=== PATIENT | female | born 1930 | race Caucasian/White ===

== ENCOUNTER 2018-09-13 17:49 | Inpatient (IN) | payer MEDICARE, BC ==
[2014-06-22 15:00] VITALS: Ht 177.8 cm; Wt 58.1 kg
[~2018-09-13] VITALS: Ht 177.8 cm; Wt 58.1 kg
[~2018-09-13 17:49] MED LIST changes: -CITA-145 PO; -CRAN1CAP9 PO; -GABA250S3 PO; -METH1TAB58 PO; -POLY10DR6 OU; -VIT1CAPS9 PO
--- NOTE | 2018-09-13 18:06 | ER Report ---
History and Physical Time Seen By MD: 18:06 Hx. of Stated Complaint: PATIENT REPORTS WEAKNESS THAT STARTED THIS MORNING. WAS DOING SOME EXERCISES AND WAS UNABLE TO GET OFF THE GROUND. A NEIGHBOR NOTICED AND HELPED HER UP. SHE WAS ON THE GROUND FROM 9-12. NO COMPLAINTS OF PAIN, JUST WEAKNESS. HPI/ROS CHIEF COMPLAINT: weakness HISTORY OF PRESENT ILLNESS: This is an 88 year old female. She was doing her regular exercises at home this morning, a combination of situps, crunches, stretches, etc, on her floor, but then could not get up. She has been having increasing difficulty over the last few months, but has always been able to get up. Today, even crawling to a chair, could not get up. Spent about 3 hours on the floor till an neighbor found her and helped her up. Unable to ambulate at this time, feels like she will just fall down. Has had dizziness for the last few months as well. Not short of breath. No chest pain. Has had normal bowel movements without blood or melena. Has had urination problems with evaluations by Dr. Benson. Denies current dysuria. No fever or chills. Feels like bilateral legs are weak and also some weakness in arms, symmetric. Allergies: Coded Allergies: amoxicillin (Verified Allergy, Mild, 06/18/14) clarithromycin (Verified Allergy, Mild, 06/18/14) lansoprazole (Verified Allergy, Mild, 06/18/14) Home Meds Reported Medications Cranberry Extract/Vit C (AZO CRANBERRY SOFTGEL) 1 Each Capsule, 1 EACH PO QDAY, CAPSULE 09/13/18 Vit C/E/Zn/Coppr/Lutein/Zeaxan (Preservision Areds 2 Softgel) 1 Each Capsule, 1 CAP PO QDAY 09/13/18 Methenamine Hippurate (METHENAMINE HIPPURATE) 1 Gm Tablet, 1 GM PO BID 09/13/18 Citalopram Hydrobromide (CITALOPRAM HBR) 20 Mg Tablet, 20 MG PO QDAY, #5 TAB 09/13/18 Discontinued Reported Medications Omeprazole Magnesium (Prilosec Otc) 20 Mg Tablet.dr, 20 MG PO QDAY, 0 Refills 11/30/09 Discontinued Scripts Hydrocodone/Acetaminophen (Lortab 5-325 mg Tablet) 1 Each Tablet, 1 TAB PO Q4H, #30 TAB Prov:NACHTIGAL,YANELIS MD 06/23/14 Reviewed Nurses Notes: Yes Hx Smoking: No Smoking Status: Never Smoker Hx Substance Use Disorder: No Hx Alcohol Use: No Constitutional Vital Sign - Last 24 Hours 09/13/18 09/13/18 09/13/18 09/13/18 17:56 17:57 18:00 18:04 Temp 98.9 Pulse 69 85 Resp 16 16 B/P (MAP) 118/69 (85) 118/68 111/61 (78) Pulse Ox 96 80 O2 Delivery Room Air 09/13/18 09/13/18 09/13/18 09/13/18 18:19 18:30 18:34 18:49 Pulse 70 70 Resp 11 34 17 B/P (MAP) 94/55 (68) Pulse Ox 99 100 09/13/18 09/13/18 09/13/18 09/13/18 19:04 19:19 19:30 19:45 Pulse 72 72 73 71 Resp 13 19 17 B/P (MAP) 124/63 (83) Pulse Ox 98 98 99 09/13/18 09/13/18 09/13/18 09/13/18 20:00 20:05 20:20 20:30 Pulse 71 Resp 19 19 19 B/P (MAP) 130/66 (87) 133/67 (89) Pulse Ox 87 79 99 09/13/18 09/13/18 09/13/18 09/13/18 20:35 20:50 21:00 21:05 Pulse 74 70 73 Resp 20 18 16 B/P (MAP) 128/63 (84) Pulse Ox 97 99 09/13/18 09/13/18 09/13/18 09/13/18 21:20 21:30 21:35 21:50 Pulse 81 78 69 Resp 14 18 18 B/P (MAP) 135/56 (82) Pulse Ox 99 97 97 09/13/18 09/13/18 09/13/18 09/13/18 22:00 22:05 22:20 22:30 Pulse 74 90 Resp 21 13 B/P (MAP) 124/60 (81) 127/64 (85) Pulse Ox 98 96 09/13/18 22:35 Pulse 78 Resp 16 Intake and Output 09/13/18 09/13/18 09/14/18 15:00 23:00 07:00 Output Total 10 ml Balance -10 ml Physical Exam General Appearance: The patient is alert. No acute distress. Non-toxic in appearance. Eyes: Pupils are equal, round. Reactive to light. No pallor, injection or icterus. Extraocular movements are intact. ENT: Mucous membranes are moist. Normal oral mucosa. Posterior oropharynx is normal. Normal tympanic membranes and canals. Neck: Supple and non tender. No lymphadenopathy. Respiratory: Breathing easily and unlabored. Lungs are clear to auscultation. Cardiovascular: Regular rate and rhythm. No murmurs, gallops or rubs. Normal capillary refill. bilateral ankle edema, trace. Gastrointestinal: Abdomen is soft and non tender. Nondistended. Normal active bowel sounds. No costovertebral angle tenderness with percussion. Neurological: Alert and oriented x3. Cranial nerves with eye exam as noted above. Normal facial sensation and motor function. Midline tongue, symmetric palate elevation. Extremities have equal strength bilaterally, somewhat weaker with leg flexion. No focal deficits noted. Is refusing to stand or transfer. Skin: Warm and dry. No rashes. Musculoskeletal: Extremities are nontender. Full range of motion. No tenderness in palpation of the cervical, thoracic and lumbar spine. DIFFERENTIAL DIAGNOSIS: After history and physical exam, differential diagnosis was considered for generalized weakness and dizziness with the inability get off the floor with concern for renal function given her past renal problems and seen Dr. Benson, and concern for possible rhabdomyolysis. Also concern for sudden worsening of weakness and we'll look for other causes such as metabolic causes or cardiac causes as well as infectious. Medical Decision Making Data Points Result Diagram: 09/13/18 1931 09/14/18 0557 Laboratory Hematology Test 09/13/18 19:31 09/13/18 20:02 Erythrocyte Sedimentation Rate 38 mm/HOUR (0-30) Urine Color Yellow Urine Clarity Slightly-cloudy Urine pH 6.0 pH (4.8-9.5) Urine Specific [place] 1.010 Urine Protein 30 mg/dL (NEGATIVE) Urine Glucose (UA) Negative mg/dL (NEGATIVE) Urine Ketones Negative mg/dL (NEGATIVE) Urine Blood Large (NEGATIVE) Urine Nitrite Negative (NEGATIVE) Urine Bilirubin Negative (NEGATIVE) Urine Urobilinogen Negative mg/dL (0.2-1.9) Urine Leukocyte Esterase Large (NEGATIVE) Urine RBC 5 /HPF (0-2/HPF) Urine WBC 93 /HPF (0-5/HPF) Urine WBC Clumps Mod /HPF Urine Squamous Epithelial Cells Few /LPF (NONE-FEW) Urine Bacteria Many /HPF (NONE-FEW) Urine Hyaline Casts Few /LPF (NONE-FEW) Urine Mucus None /HPF (NONE-FEW) Urine Random Creatinine 69.6 mg/dl Urine Random Sodium 35 MEQ/L Chemistry Test 09/13/18 19:31 09/13/18 20:02 Erythrocyte Sedimentation Rate 38 mm/HOUR (0-30) Urine Color Yellow Urine Clarity Slightly-cloudy Urine pH 6.0 pH (4.8-9.5) Urine Specific [place] 1.010 Urine Protein 30 mg/dL (NEGATIVE) Urine Glucose (UA) Negative mg/dL (NEGATIVE) Urine Ketones Negative mg/dL (NEGATIVE) Urine Blood Large (NEGATIVE) Urine Nitrite Negative (NEGATIVE) Urine Bilirubin Negative (NEGATIVE) Urine Urobilinogen Negative mg/dL (0.2-1.9) Urine Leukocyte Esterase Large (NEGATIVE) Urine RBC 5 /HPF (0-2/HPF) Urine WBC 93 /HPF (0-5/HPF) Urine WBC Clumps Mod /HPF Urine Squamous Epithelial Cells Few /LPF (NONE-FEW) Urine Bacteria Many /HPF (NONE-FEW) Urine Hyaline Casts Few /LPF (NONE-FEW) Urine Mucus None /HPF (NONE-FEW) Urine Random Creatinine 69.6 mg/dl Urine Random Sodium 35 MEQ/L Urinalysis Test 09/13/18 20:02 Urine Color Yellow Urine Clarity Slightly-cloudy Urine pH 6.0 pH (4.8-9.5) Urine Specific [place] 1.010 Urine Protein 30 mg/dL (NEGATIVE) Urine Glucose (UA) Negative mg/dL (NEGATIVE) Urine Ketones Negative mg/dL (NEGATIVE) Urine Blood Large (NEGATIVE) Urine Nitrite Negative (NEGATIVE) Urine Bilirubin Negative (NEGATIVE) Urine Urobilinogen Negative mg/dL (0.2-1.9) Urine Leukocyte Esterase Large (NEGATIVE) Urine RBC 5 /HPF (0-2/HPF) Urine WBC 93 /HPF (0-5/HPF) Urine WBC Clumps Mod /HPF Urine Squamous Epithelial Cells Few /LPF (NONE-FEW) Urine Bacteria Many /HPF (NONE-FEW) Urine Hyaline Casts Few /LPF (NONE-FEW) Urine Mucus None /HPF (NONE-FEW) Urine Random Creatinine 69.6 mg/dl Urine Random Sodium 35 MEQ/L EKG/Imaging EKG Interpretation 12 lead EKG: Rhythm: normal sinus rhythm, rate 70 to [place]: normal QRS: normal ST segments: normal Imaging EXAMINATION: CT head without IV contrast HISTORY: Weakness, dizziness. TECHNIQUE: Axial CT images of the head were obtained from the vertex to the skull base without IV contrast, with coronal and sagittal 2D reconstructed images. One of the following dose optimization techniques was utilized in the performance of this exam: Automated exposure control; adjustment of the mA and/or kV according to the patient's size; or use of an iterative reconstruction technique. Specific details can be referenced in the facility's radiology CT exam operational policy. COMPARISON: None. FINDINGS: There is mild generalized parenchymal atrophy, with mild patchy low attenuation in the deep white matter compatible with chronic small vessel ischemic change. Intracranial vascular calcifications. No CT evidence of intracranial hemorrhage, mass lesion, or acute infarct. No midline shift or extra-axial fluid collections. Zheng-white differentiation is maintained. The calvarium is intact. The partially visualized paranasal sinuses and mastoid air cells are unopacified. IMPRESSION: 1. No CT evidence of acute intracranial pathology. 2. Mild chronic age-related changes. Report Dictated By: Clarence Vines MD at 09/13/2018 7:17 PM ED Course/Re-evaluation Clinical Indication for ER IV: Hydration, IV Access ED Course Patient found to have acute renal failure, likely on top of chronic. Signs of urinary tract infection, elevated sedimentation rate, elevated creatinine ph osphokinase consistent with rhabdomyolysis, and an elevated troponin. Initially talked about admitting here but we don't have cardiology or specialty care so recommended transfer to [facility]. [facility] was willing to accept but given the patient's age and chronic medical conditions we talked again and the patient really would prefer not to go to [facility]. She is a DO NOT RESUSCITATE. She would like to stay here and I talked to her hospitalist again and we will keep her here for medical management and reevaluation if needed depending on her response to medical treatment. She does not want any heroic measures or intervention such as a cardiac catheterization or dialysis. Decision to Disposition Date: September 13, 2018 Decision to Disposition Time: 22:21 Depart Departure Latest Vital Signs Vital Signs Date Time Temp Pulse Resp B/P (MAP) Pulse Ox O2 Delivery O2 Flow Rate FiO2 09/13/18 22:35 78 16 09/13/18 22:30 127/64 (85) 09/13/18 22:20 96 09/13/18 17:57 98.9 Room Air Impression: Primary Impression: Rhabdomyolysis Additional Impressions: Urinary tract infection Acute renal failure Elevated troponin Condition: Condition Unchanged Disposition: Admitted from ER Referrals: EMILY MOON (PCP) Problem Qualifiers Primary Impression: Rhabdomyolysis Rhabdomyolysis type: traumatic Encounter type: initial encounter Qualified Codes: T79.6XXA - Traumatic ischemia of muscle, initial encounter Additional Impressions: Urinary tract infection Urinary tract infection type: site unspecified Hematuria presence: without hematuria Qualified Codes: N39.0 - Urinary tract infection, site not specif ied Acute renal failure Acute renal failure type: unspecified Qualified Codes: N17.9 - Acute kidney failure, unspecified KIMBERLEE NOGUERA MD September 13, 2018 18:06
--- NOTE | 2018-09-13 19:01 | EKG ---
FACILITY: [facility] - [place] PATIENT NAME: ROZ MART : [id number] MR: [id number] V: [id number] EXAM DATE: ORDERING PHYSICIAN: KIMBERLEE NOGUERA TECHNOLOGIST: SHRAVAN Test Reason : DYSPNEA Blood Pressure : / mmHG Vent. Rate : 072 BPM Atrial Rate : 072 BPM P-R Int : 148 ms QRS Dur : 086 ms QT Int : 422 ms P-R-T Axes : 078 073 077 degrees QTc Int : 462 ms Normal sinus rhythm Normal ECG When compared with ECG of 18-JUN-2014 14:55, No significant change was found Confirmed by Scotty Trevino ([id number]) on 09/13/2018 9:50:25 PM Referred By: Confirmed By:Scotty Thompson
--- NOTE | 2018-09-13 19:32 | RADIOLOGY IMAGING REPORT ---
FACILITY: [facility] PATIENT NAME: Sarita Griffith : 1930 MR: [id number] V: [id number] EXAM DATE: ORDERING PHYSICIAN: KIMBERLEE NOGUERA TECHNOLOGIST: Location: Patient: Sarita Griffith : 1930 Visit/Account:[id number] Date of Sevice: 09/13/2018 EXAMINATION: CT head without IV contrast HISTORY: Weakness, dizziness. TECHNIQUE: Axial CT images of the head were obtained from the vertex to the skull base without IV c ontrast, with coronal and sagittal 2D reconstructed images. One of the following dose optimization techniques was utilized in the performance of this exam: Autom ated exposure control; adjustment of the mA and/or kV according to the patient's size; or use of an i terative reconstruction technique. Specific details can be referenced in the facility's radiology C T exam operational policy. COMPARISON: None. FINDINGS: There is mild generalized parenchymal atrophy, with mild patchy low attenuation in the deep white mat ter compatible with chronic small vessel ischemic change. Intracranial vascular calcifications. No CT evidence of intracranial hemorrhage, mass lesion, or acute infarct. No midline shift or extra-a xial fluid collections. Zheng-white differentiation is maintained. The calvarium is intact. The partially visualized paranasal sinuses and mastoid air cells are unopaci fied. IMPRESSION: 1. No CT evidence of acute intracranial pathology. 2. Mild chronic age-related changes. Report Dictated By: Clarence Vines MD at 09/13/2018 7:17 PM Report E-Signed By: Clarence Vines MD at 09/13/2018 7:28 PM [id number]
[2018-09-13 19:49] LABS: PLATELET COUNT, AUTOMATED 257 K/uL (150-450)
[2018-09-13] MEDS ORDERED: cefTRIAXone(*) 1 GM VIAL 1 GM in NS(*) 0.9% 100 ML MINI-BAG 100 ML IVPB ONE (22:15)
[2018-09-13] MEDS ORDERED: NS(*) 0.9% 1000 ML BAG 1,000 ML IV ONE (22:15)
[2018-09-13] MEDS ORDERED: CRAN1CAP9 PO (22:58)
[2018-09-13] MEDS ORDERED: VIT1CAPS9 PO (22:58)
[2018-09-13] MEDS ORDERED: METH1TAB58 PO (22:58)
[2018-09-13] MEDS ORDERED: CITA-145 PO (22:58)
[2018-09-13] MEDS ORDERED: FLUSH 10 ML SYR IVP PRN (23:30)
[2018-09-13] MEDS ORDERED: ACETAMINOPHEN 325 MG TAB PO PRN (23:30)
[2018-09-13 23:56] VITALS: BP 136/70
--- NOTE | 2018-09-14 00:11 | History & Physical ---
History of Present Illness Chief Complaint muscle pain/weakness History of Present Illness 88F presented with muscle pain and weakness. PMHx significant for chronic UTI, mild memory impairment. Reports usually does sit-ups and other exercises on floor. 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 Today reports she was unable to pull self up and believes she lay on the floor for 3 hours. In ER found to have elevated CPK, Cr, troponin, WBC. Transfer discussed due to oliguria and elevated troponin, patient requests DNR status and to remain at [facility]. She did not rule out the possibility she would pursue temporary dialysis if it were indicated but would not wish intubation. History Problems: (1) Urinary tract infection Status: Acute Home Meds Reported Medications Cranberry Extract/Vit C (AZO CRANBERRY SOFTGEL) 1 Each Capsule, 1 EACH PO QDAY, CAPSULE 09/13/18 Vit C/E/Zn/Coppr/Lutein/Zeaxan (Preservision Areds 2 Softgel) 1 Each Capsule, 1 CAP PO QDAY 09/13/18 Methenamine Hippurate (METHENAMINE HIPPURATE) 1 Gm Tablet, 1 GM PO BID 09/13/18 Citalopram Hydrobromide (CITALOPRAM HBR) 20 Mg Tablet, 20 MG PO QDAY, #5 TAB 09/13/18 Discontinued Reported Medications Omeprazole Magnesium (Prilosec Otc) 20 Mg Tablet.dr, 20 MG PO QDAY, 0 Refills 11/30/09 Discontinued Scripts Hydrocodone/Acetaminophen (Lortab 5-325 mg Tablet) 1 Each Tablet, 1 TAB PO Q4H, #30 TAB Prov:YANELIS POLLACK MD 06/23/14 Allergies: Coded Allergies: amoxicillin (Verified Allergy, Mild, 06/18/14) clarithromycin (Verified Allergy, Mild, 06/18/14) lansoprazole (Verified Allergy, Mild, 06/18/14) Patient History: Hypertension in sister Hx Smoking: No Smoking Status: Never Smoker Caffeine Intake: Tea Caffeine/Cups Per Day: ONCE IN A WHILE Hx Alcohol Use: No Hx Substance Use Disorder: No Social Drug Use: Never Review of Systems All Systems Reviewed/Normal: Yes, Except as Noted Neurological: Weakness Musculoskeletal: Pain, Impaired Mobility Exam Vital Signs Vital Signs Date Time Temp Pulse Resp B/P (MAP) Pulse Ox O2 Delivery O2 Flow Rate FiO2 09/13/18 23:35 76 18 98 09/13/18 23:30 131/65 (87) 09/13/18 22:53 2.0 09/13/18 17:57 98.9 Room Air General Appearance: Alert, Awake, Afebrile Neuro: No Gross deficits (slight asymetry on speaking, not present on CN examination. CN 2-12 intact) Cardiovascular: Normal Rhythm & Peripheral Pulses Respiratory: No Respiratory Distress GI: Abd Soft and Non-Tender Musculoskeletal: Other (weakness and pain) Extremities: Soft and Non Tender, Warm, Pulses, Perfused; No Edema Integumentary: Skin Intact without Lesion / Mass Medical Decision Making Data Points Result Diagram: 09/13/18193009/13/181918 EKG / Imaging EKG Interpretation no st segment changes Assessment and Plan Problems: (1) Acute renal failure Status: Acute Assessment & Plan: Secondary to rhabdomyolysis vs chronic vs ATN. FENa, renal US pending. IV NS started, Juárez ordered, strict I&O. Minimal UOP since arrival concern for anuric JULITO. (2) Rhabdomyolysis Status: Acute Assessment & Plan: CPK 4700 on admission, IV NS started, recheck lab in am. (3) Elevated troponin Status: Acute Assessment & Plan: 0.3 on admission, likely related to strain, denies CP. Trend q6h. (4) Urinary tract infection Status: Acute Assessment & Plan: Begin ceftriaxone, urine Cx pending. (5) Leukocytosis Assessment & Plan: WBC 30k on admission, likely urinary source based on UA. Begin Ceftriaxone, urine culture and blood cultures pending. Venous Thromboembolism Antithrombotics Is Pt On Any Antithrombotics?: No Prophylaxis Tx Contraindicated Pharmacological Contraindicati: Renal Impairment Mechanical Contraindications: Medical Contraindication Exam Sepsis Risk: No Definite Risk GEOVANNY CHAIREZ DO September 14, 2018 00:11
[2018-09-14] MEDS: NS(*) 0.9% 1000 ML BAG 1,000 ML IV PRN ×3 (00:37→15:24)
[2018-09-14 06:08] LABS: PLATELET COUNT, AUTOMATED 239 K/uL (150-450)
[2018-09-14 07:13] VITALS: BP 129/69
--- NOTE | 2018-09-14 09:22 | Hospitalist Progress Note ---
Subjective Progress Notes Subjective Feeling a bit better this am. Physical Exam Vital Signs Date Time Temp Pulse Resp B/P (MAP) Pulse Ox O2 Delivery O2 Flow Rate FiO2 09/14/18 07:13 98.2 92 16 129/69 (89) 97 Nasal Cannula 2.5 Intake and Output 09/14/18 07:00 Intake Total 1975 ml Output Total 1010 ml Balance 965 ml Intake IV Total 1975 ml Output Urine Total 1010 ml General Appearance: Alert, Awake, No Acute Distress Neuro: No Gross deficits Cardiovascular: Regular Rate and Rhythm Respiratory: Clear to Auscultation (Anteriorly.) GI: Soft and Non-Tender Extremities: Warm, Perfused Psych: Appropriate Mood & Affect Result Diagram: 09/14/1855609/14/18556 Assessment and Plan Problems: (1) Acute renal failure Status: Acute Assessment & Plan: Secondary to rhabdomyolysis vs chronic vs ATN. FENa, renal US pending. IV NS started, Juárez ordered, strict I&O. Urine output improved with IV fluids. Creatinine improved from 2.1 to 1.5 this am. Continue fluids. Monitor renal function. (2) Rhabdomyolysis Status: Acute Assessment & Plan: CPK 4700 on admission, IV NS started, down to 2653 this am with fluids. (3) Elevated troponin Status: Acute Assessment & Plan: 0.3 on admission, likely related to strain, denies CP. Down to 0.166 this am. Repeat in am. (4) Urinary tract infection Status: Acute Assessment & Plan: Patient started on ceftriaxone. Urine culture was not ordered. Previous cultures have grown E. coli sensitive to ceftriaxone. (5) Leukocytosis Assessment & Plan: WBC 30k on admission, likely urinary source based on UA. Begin Ceftriaxone, blood cultures pending. Time Spent on Plan of Care: < 30 min Exam Sepsis Risk: No Definite Risk Problem Qualifiers (1) Acute renal failure: Acute renal failure type: unspecified Qualified Codes: N17.9 - Acute kidney failure, unspecified (2) Rhabdomyolysis: Rhabdomyolysis type: traumatic Encounter type: initial encounter Qualified Codes: T79.6XXA - Traumatic ischemia of muscle, initial encounter (3) Urinary tract infection: Urinary tract infection type: site unspecified Hematuria presence: without hematuria Qualified Codes: N39.0 - Urinary tract infection, site not specified YANELY MCKEON MD September 14, 2018 09:22
[2018-09-14 11:17] VITALS: BP 108/53
--- NOTE | 2018-09-14 14:48 | RADIOLOGY IMAGING REPORT ---
FACILITY: [facility] - [place] PATIENT NAME: Sarita Griffith : 1930 MR: [id number] V: [id number] EXAM DATE: ORDERING PHYSICIAN: GEOVANNY MEHTA TECHNOLOGIST: Location: [facility] - [place] Patient: Sarita Griffith : 1930 Visit/Account:[id number] Date of Sevice: 09/13/2018 KIDNEYS HISTORY: JULITO COMPARISON: None. FINDINGS: Kidneys: Right kidney- 10.4 cm in length with hypoechoic irregularly-shaped mass in the upper pole, 3.2 x 2.4 x 3.3 cm. The mass demonstrates increased through transmission. Remaining portions of the kidney demo nstrate normal echotexture, without evidence of hydronephrosis or calculus.. Left kidney- 10.4 cm in length with a 2.8 cm cyst in the upper pole. There is no suspicious mass or c alculus.. Uniform and symmetric blood flow in each kidney by Doppler ultrasound. Bladder: There is a Juárez catheter in the urinary bladder.. Abdominal aorta and IVC: Patent by Doppler ultrasound. IMPRESSION: 1. Hypoechoic mass upper pole right kidney, 3.2 cm. This demonstrates increased through transmission, suggesting this may represent a hemorrhagic cyst or proteinaceous cyst. A solid mass is felt to be l ess likely however is in the differential diagnosis. Recommend a CT of the abdomen without and with I V contrast for further evaluation. 2. Simple cyst upper pole left kidney. Report Dictated By: Alec Worthington at 09/14/2018 2:41 PM Report E-Signed By: Alec Worthington at 09/14/2018 2:45 PM WSN:[id number]
[2018-09-14 15:27] VITALS: BP 124/60
[2018-09-14 16:05] VITALS: BP 127/60
[2018-09-14 19:15] VITALS: BP 122/58
[2018-09-14] MEDS: cefTRIAXone 1 GM VIAL IVP SCH (21:41)
[2018-09-14 23:20] VITALS: BP 135/72
[2018-09-15 06:10] LABS: PLATELET COUNT, AUTOMATED 220 K/uL (150-450)
[2018-09-15 07:16] VITALS: BP 140/78
[2018-09-15] MEDS: NS(*) 0.9% 1000 ML BAG 1,000 ML IV PRN ×2 (07:53→18:26)
[2018-09-15] MEDS ORDERED: IOPAMIDOL 76% 100 ML INFUS BTL 100 ML ONE (10:14)
[2018-09-15 11:36] VITALS: BP 126/87
--- NOTE | 2018-09-15 11:53 | Hospitalist Progress Note ---
Subjective Progress Notes Subjective This patient was admitted for rhabdomyolysis. She had no acute events overnight. Patient Complains of: Cardiovascular: No: Chest Pain Respiratory: No: Shortness of Breath Physical Exam Vital Signs Date Time Temp Pulse Resp B/P (MAP) Pulse Ox O2 Delivery O2 Flow Rate FiO2 09/15/18 11:36 98.3 100 18 126/87 (100) 94 Nasal Cannula 2.0 Intake and Output 09/15/18 07:00 Intake Total 1540 ml Output Total 1650 ml Balance -110 ml Intake Oral 540 ml IV Total 1000 ml Output Urine Total 1650 ml Cardiovascular: Regular Rate and Rhythm Respiratory: Clear to Auscultation Result Diagram: 09/15/1853109/15/1832 Assessment and Plan Problems: (1) Acute renal failure Status: Acute Assessment & Plan: Secondary to rhabdomyolysis vs chronic vs ATN. She has been improving with IV fluids. (2) Rhabdomyolysis Status: Acute Assessment & Plan: She was found on the floor for an unknown period of time. Her CPK has been improving with hydration. (3) Elevated troponin Status: Acute Assessment & Plan: Likely secondary to rhabdomyolysis. Her levels have been improving. (4) Urinary tract infection Status: Acute Assessment & Plan: She did have leukocytes and bacteria in her urine. She also had an elevated WBC. A culture is not available. She is on empiric treatment with ceftriaxone. Exam Sepsis Risk: No Definite Risk Problem Qualifiers (1) Acute renal failure: Acute renal failure type: unspecified Qualified Codes: N17.9 - Acute kidney failure, unspecified (2) Rhabdomyolysis: Rhabdomyolysis type: traumatic Encounter type: initial encounter Qualified Codes: T79.6XXA - Traumatic ischemia of muscle, initial encounter (3) Urinary tract infection: Urinary tract infection type: site unspecified Hematuria presence: without hematuria Qualified Codes: N39.0 - Urinary tract infection, site not specified EMMANUEL LAIRD DO September 15, 2018 11:52
[2018-09-15 14:36] VITALS: BP 120/67
--- NOTE | 2018-09-15 14:59 | NUR ---
Physical Therapy Impression PT eval complete. Noted HR monitor in 140s at rest with irregular pulse palpated but not that rapid. SO2 WNL. Pt's HR decreased to 90s-100s. Pt able to transfer supine>sit with Mod A x1 and sit>supine with Mod A x1. Pt able to tolerate sitting at EOB x5' with HR increases and decreases. Pt's nurse made aware. Pt fearful of functional mobility throughout session. Recommend short-term subacute rehab prior to returning home alone. Physical Therapy Goals 1. Mod I bed mobility. 2. Mod I transfers. 3. Mod I gait x 150' with least restrictive device. 4. Ascend/descend 1 stais SBA. Patient's Goals
--- NOTE | 2018-09-15 14:59 | RADIOLOGY IMAGING REPORT ---
FACILITY: [facility] PATIENT NAME: Sarita Griffith : 1930 MR: [id number] V: [id number] EXAM DATE: ORDERING PHYSICIAN: EMMANUEL LAIRD TECHNOLOGIST: Location: [facility] - [place] Patient: Sarita Griffith : 1930 Visit/Account:[id number] Date of Sevice: 09/15/2018 CT ABDOMEN PELVIS W & W/O CONTRAST HISTORY: Right Renal Mass TECHNIQUE: Axial images acquired through the abdomen/pelvis both with and without IV contrast.. Agusto nal and sagittal reformatting also performed.Dose Lowering Technique One of the following dose optimization techniques was utilized in the performance of this exam: Autom ated exposure control; adjustment of the mA and/or kV according to the patient's size; or use of an i terative reconstruction technique. Specific details can be referenced in the facility's radiology C T exam operational policy. CONTRAST: 75 mL Isovue-370 COMPARISON: Renal ultrasound September 13, [address] of abdomen and pelvis May 18, 2014 FINDINGS: Visualized lung bases: There small bilateral posterior layering pleural effusions with compressive a telectasis in the lower lobes. Linear scarring and/or atelectasis in the lower lobes has slightly in creased as well. There is calcifications of the mitral annulus Hepatobiliary: 2 cm partially calcified mass posterior dome of the liver has remained stable. There is a tiny subcentimeter cyst anterolateral right lobe that also remains stable . There are postsur gical changes from a cholecystectomy Spleen: Negative. Adrenals: Is mild thickening the adrenal glands Pancreas: Negative. Kidneys ureters and bladder: There is a 3.2 cm cyst upper pole of the left kidney.. The hypoattenuat ing structure in the upper pole of the right kidney measuring approximately 2.9 cm in diameter and re presents a large calyceal diverticulum which was demonstrated on the prior CT only after a 17 minute delayed image with resultant filling of the diverticulum with excreted contrast. A Juárez catheter is present within the urinary bladder although the bladder does not appear decompressed. Air is noted within the urinary bladder Genitalia: Uterus is atrophic and retroverted. The endometrial stripe is dilated at 1.6 cm which is abnormal for postmenopausal woman GI: Surgical gilles are seen at the cecum. There is a moderate amount of fecal material seen in th e colon which can be seen with constipation. There is a moderate size hiatal hernia Vessels/spaces/nodes: There moderate atherosclerotic calcifications of the abdominal aorta and branc h vessels Bones/soft tissues: Mottled appearance to the medial left iliac bone appears stable when compared th e prior study. Similar changes although to a lesser extent are identified along the medial right lorrie ac bone Additional findings: None pertinent. IMPRESSION: There small bilateral posterior layering pleural effusions with compressive atelectasis lower lobes. Partially calcified mass along the posterior dome of the liver has remained stable Postsurgical changes from cholecystectomy The hypoattenuating structure in the upper pole the right kidney measures approximate 2.[address] and represents a calyceal diverticulum which was demonstrated on the prior CT only after the 17 m inute delayed image at which time the diverticulum filled with contrast.. Juárez catheter is noted within the bladder which is not decompressed.. Air is also noted within the bladder which may be related to the Juárez catheter although the differential diagnosis would include infection with gas-forming organism or fistula.. The uterus is atrophic and retroverted. Endometrial stripe is hypodense and dilated at 1.6 cm which is abnormal for postmenopausal woman. Clinical follow-up needed Moderate hiatal hernia Additional chronic findings as described Report Dictated By: Dorene Baires MD at 09/15/2018 2:20 PM Report E-Signed By: Dorene Baires MD at 09/15/2018 2:55 PM WSN:[email or web address]
--- NOTE | 2018-09-15 15:10 | NUR ---
Occupational Therapy Impression Pt reports "hurting all over" and demonstrates fear/anxiety towards movement. Mod A x2 bed mobility supine to sit and sit to supine. Pt tolerated sitting EOB x4-5minutes prior to return to supine in bed. Pt's HR varied with monitors indicating high 130s/140 supine in bed. At end of session HR about 90-110bpm. Pt with no complaints. Nursing informed and tx session adjusted with consideration of HR. Recommend short-term rehab. Occupational Therapy Goals 1) Pt will be Min A UB/LB dressing. 2) Pt will be Min A toilet task. 3) Pt will be Min A grooming/hygiene. Patient's Goal
--- NOTE | 2018-09-15 15:44 | NUR ---
ECF Referral - Received referral, met with patient who stated "I'll sure try"! Explained rehab philosophy and the goal is to get stronger to be able to go home. PASRR negative. Requested carbajal catheter necessity be addressed with Maria Del Carmen Benton RN. Will have her qualifying stay after tonight and if she is medically ready may be admitted.
--- NOTE | 2018-09-15 16:05 | Medical Nutrition Therapy ---
Nutrition Anthropometrics Height (Inches): 70.00 Height (Calculated Centimeters: 177.321719 Weight (Pounds): 128 Weight (Calculated Kilograms): 58.088 BMI: 18.4 Caleb Nutrition Score: Probably Inadequate Caleb Nutrition Risk Score: 15 Dietary Referral Nutrition Risk Factors: Unplanned Loss >10lbs Nutrition Risk Comment: Physical Findings Physical Appearance: Underweight BMI<19 Skin Appearance Skin Appearance: Edema Edema Location Modifier: Right Edema Location: Lower Extremity Type of Edema: Degree of Edema: 1+ Gastrointestinal Symptoms GI Symtoms: Tube Present: Bowel Sounds: Recent Bowel Pattern: Stool Characteristics: Nutritional Diagnosis Nutritional Risk Acuity 1: Acute/ES Renal Nutritional Acuity: 1-High Nutrition Diagnosis: Under-weight Nutrition Etiology: Physiological Causes Nutrition Problem/Etiology/Sym: AEB BMI 18.4 Energy Requirement: 1425 (MSJ) Protein Requirement: 58 (1gm/kg) Fluid Requirement: 1425 (1ml/kcal) Diet Type: Diet as Tolerated DOV/REG Nutrition Intervention: Cont diet as ordered, Encourage intake, Between meal supplement Additional Diet Restrictions: OFFER NUTR SUPPLMENT Nutrition Monitoring & Eval Nutrition Goals: Eat 50-100% Meal RD Patient Assessment Time: [address] Assessment Type: RD Assessment Patient Nutrition Acuity: 1-High Follow Up Date: September 18, 2018 Nutritional Comment: 09/15 Pt admitted for ARF & Rhabdomyolysis. BUN cont elevated but improved to 26. Creatinine is now WNR at 0.7. Alb 2.8. Pt on regualr diet and eating 75% of meals. BMI is in underwt range. Pt states has always been thin and 128# is within her usual range. Pt states woud like to cont exercise as she has always been active but recognizes that floor exercises are probably not the best. Will ask PT to talk with pt on alternative exercises per pt request. Will offer nutr supplement to increase kcal and protein intake. LINDA WOODARD September 15, 2018 16:05
--- NOTE | 2018-09-15 17:34 | Antimicrobial Stewardship ---
Antimicrobial Stewardship Empiricly appropriate: Yes Comment Rocephin 1 gm IVP daily for UTI. Approriate Cultures done: No Renal/Hepatic dosing: Yes Reviewed for Drug Interaction: Yes Monitored for Toxicities: Yes Clinically stable/improving: Yes IV to PO Opportunity: Yes Determine cumulative duration: 3 to 7 days YESICA LONDON September 15, 2018 17:34
[2018-09-15 19:59] VITALS: BP 120/65
[2018-09-15] MEDS: cefTRIAXone 1 GM VIAL IVP SCH (21:03)
[2018-09-16 04:12] VITALS: BP 132/75
[2018-09-16 06:06] LABS: PLATELET COUNT, AUTOMATED 183 K/uL (150-450)
[2018-09-16 07:11] VITALS: BP 141/80
[2018-09-16] MEDS ORDERED: POTASSIUM CHL 10 MEQ TABCR PO SCH (08:10)
--- NOTE | 2018-09-16 08:23 | Transfer Summary (ECF/SWB) ---
Transfer Summary (F/[facility]) Problems: (1) Urinary tract infection Status: Acute Assessment & Plan: She did have leukocytes and bacteria in her urine. She also had an elevated WBC count. A culture is not available as it was not done on the ER specimen. She was placed on empiric treatment with IV ceftriaxone initially. She will be transitioned to oral Omnicef 300mg PO BID for 5 more days to complete a 7 day course of therapy. (2) Acute renal failure Status: Acute Assessment & Plan: Secondary to dehydration and/or a component of rhabdomyolysis. She improved with IV fluids and creatinine is now in normal range. Will continue to monitor lab periodically. (3) Rhabdomyolysis Status: Acute Assessment & Plan: She was found on the floor for an unknown period of time. Her CPK was elevated at just under 5000. She has been improving with hydration. Her CPK did come down to under 300 prior to transfer. She was working with PT/OT regarding her mobility/strength/safety. It was recommended she have short- term/subacute rehabilitation prior to returning home. She will be transferred to [facility] to continue her rehab. (4) Elevated troponin Status: Acute Assessment & Plan: Likely secondary to acute renal failure/rhabdomyolysis. It is possible she may have have some troponin leak due to "strain" due to borderline hypotension. Her levels have been returning to normal. (5) Hypokalemia Status: Acute Assessment & Plan: Mild. Most likely due to decreased intake. She will be on oral replacement for several days. Will plan on recheck labs in 5-7 days. Latest Vital Signs Vital Signs Date Time Temp Pulse Resp B/P (MAP) Pulse Ox O2 Delivery O2 Flow Rate FiO2 09/16/18 07:11 98 Nasal Cannula 1.5 09/16/18 07:11 98.4 63 16 141/80 (100) Result Diagram: 09/16/18 0547 09/16/18 0547 Diagnostics Item Value Date Time Sodium Level 135 mmol/L L 09/13/181918 Potassium Level 4.2 mmol/L 09/13/181918 Chloride Level 98 mmol/L 09/13/181918 Carbon Dioxide Level 21 mmol/L L 09/13/181918 Blood Urea Nitrogen 50 mg/dl H 09/13/181918 Creatinine 2.10 mg/dl H 09/13/181918 Glomerular Filtration Rate Calc 22.3 09/13/181918 Random Glucose 108 mg/dl 09/13/181918 Calcium Level 9.1 mg/dl 09/13/181918 Total Bilirubin 0.4 mg/dl 09/13/181918 Aspartate Amino Transf (AST/SGOT) 181 U/L H 09/13/181918 Alanine Aminotransferase (ALT/SGPT) 51 U/L 09/13/181918 Alkaline Phosphatase 93 U/L 09/13/181918 Total Creatine Kinase 4658 U/L H 09/13/181918 Troponin I 0.324 ng/ml *H 09/13/181918 Total Protein 6.8 g/dl 09/13/181918 Albumin 3.6 g/dl 09/13/181918 Lactate 1.3 mmol/L 09/13/182235 Troponin I 0.166 ng/ml *H 09/14/18 0557 Troponin I 0.253 ng/ml *H 09/14/183 Troponin I 0.068 ng/ml 09/15/18 0532 Total Creatine Kinase 237 U/L H 09/16/18 0547 Total Creatine Kinase 2653 U/L H 09/14/18 0557 Phosphorus Level 5.1 mg/dl H 09/14/183 Phosphorus Level 4.5 mg/dl 09/14/1857 Urine Random Sodium 35 MEQ/L 09/13/182001 Urine Random Creatinine 69.6 mg/dl 09/13/182001 PATIENT NAME: Sarita Griffith : 1930 MR: [id number] V: [id number] EXAM DATE: ORDERING PHYSICIAN: KIMBERLEE NOGUERA TECHNOLOGIST: Location: [facility] [place] Patient: Sarita rGiffith : 1930 Visit/Account:[id number] Date of Sevice: 09/13/2018 EXAMINATION: CT head without IV contrast HISTORY: Weakness, dizziness. TECHNIQUE: Axial CT images of the head were obtained from the vertex to the skull base without IV contrast, with coronal and sagittal 2D reconstructed images. One of the following dose optimization techniques was utilized in the performance of this exam: Automated exposure control; adjustment of the mA and/or kV according to the patient's size; or use of an iterative reconstruction technique. Specific details can be referenced in the facility's radiology CT exam operational policy. COMPARISON: None. FINDINGS: There is mild generalized parenchymal atrophy, with mild patchy low attenuation in the deep white matter compatible with chronic small vessel ischemic change. Intracranial vascular calcifications. No CT evidence of intracranial hemorrhage, mass lesion, or acute infarct. No midline shift or extra-axial fluid collections. Zheng-white differentiation is maintained. The calvarium is intact. The partially visualized paranasal sinuses and mastoid air cells are unopacified. IMPRESSION: 1. No CT evidence of acute intracranial pathology. 2. Mild chronic age-related changes. Report Dictated By: Clarence Vines MD at 09/13/2018 7:17 PM Report E-Signed By: Clarence Vines MD at 09/13/2018 7:28 PM WSN:[id number] PATIENT NAME: Sarita Griffith : 1930 MR: [id number] V: [id number] EXAM DATE: [id number] ORDERING PHYSICIAN: GEOVANNY MEHTA TECHNOLOGIST: Location: [facility] [place] Patient: Sarita Griffith : 1930 Visit/Account:[id number] Date of Sevice: 09/13/2018 KIDNEYS HISTORY: JULITO COMPARISON: None. FINDINGS: Kidneys: Right kidney- 10.4 cm in length with hypoechoic irregularly-shaped mass in the upper pole, 3.2 x 2.4 x 3.3 cm. The mass demonstrates increased through transmission. Remaining portions of the kidney demonstrate normal echotexture, without evidence of hydronephrosis or calculus.. Left kidney- 10.4 cm in length with a 2.8 cm cyst in the upper pole. There is no suspicious mass or calculus.. Uniform and symmetric blood flow in each kidney by Doppler ultrasound. Bladder: There is a Juárez catheter in the urinary bladder.. Abdominal aorta and IVC: Patent by Doppler ultrasound. IMPRESSION: 1. Hypoechoic mass upper pole right kidney, 3.2 cm. This demonstrates increased through transmission, suggesting this may represent a hemorrhagic cyst or proteinaceous cyst. A solid mass is felt to be less likely however is in the differential diagnosis. Recommend a CT of the abdomen without and with IV contrast for further evaluation. 2. Simple cyst upper pole left kidney. Report Dictated By: Alec Worthington at 09/14/2018 2:41 PM Report E-Signed By: Alec oWrthington at 09/14/2018 2:45 PM WSN:[id number] PATIENT NAME: Sarita Griffith : 1930 MR: [id number] V: [id number] EXAM DATE: ORDERING PHYSICIAN: EMMANUEL LAIRD TECHNOLOGIST: Location: [facility] [place] Patient: Sarita Griffith : 1930 Visit/Account:[id number] Date of Sevice: 09/15/2018 CT ABDOMEN PELVIS W & W/O CONTRAST HISTORY: Right Renal Mass TECHNIQUE: Axial images acquired through the abdomen/pelvis both with and without IV contrast.. Coronal and sagittal reformatting also performed.Dose Lowering Technique One of the following dose optimization techniques was utilized in the performance of this exam: Automated exposure control; adjustment of the mA and/or kV according to the patient's size; or use of an iterative reconstruction technique. Specific details can be referenced in the facility's radiology CT exam operational policy. CONTRAST: 75 mL Isovue-370 COMPARISON: Renal ultrasound September 13, [address] of abdomen and pelvis May 18, 2014 FINDINGS: Visualized lung bases: There small bilateral posterior layering pleural effusions with compressive atelectasis in the lower lobes. Linear scarring and/or atelectasis in the lower lobes has slightly increased as well. There is calcifications of the mitral annulus Hepatobiliary: 2 cm partially calcified mass posterior dome of the liver has remained stable. There is a tiny subcentimeter cyst anterolateral right lobe that also remains stable . There are postsurgical changes from a cholec ystectomy Spleen: Negative. Adrenals: Is mild thickening the adrenal glands Pancreas: Negative. Kidneys ureters and bladder: There is a 3.2 cm cyst upper pole of the left kidney.. The hypoattenuating structure in the upper pole of the right kidney measuring approximately 2.9 cm in diameter and represents a large calyceal diverticulum which was demonstrated on the prior CT only after a 17 minute delayed image with resultant filling of the diverticulum with excreted contrast. A Juárez catheter is present within the urinary bladder although the bladder does not appear decompressed. Air is noted within the urinary bladder Genitalia: Uterus is atrophic and retroverted. The endometrial stripe is dilated at 1.6 cm which is abnormal for postmenopausal woman GI: Surgical gilles are seen at the cecum. There is a moderate amount of fecal material seen in the colon which can be seen with constipation. There is a moderate size hiatal hernia Vessels/spaces/nodes: There moderate atherosclerotic calcifications of the abdominal aorta and branch vessels Bones/soft tissues: Mottled appearance to the medial left iliac bone appears stable when compared the prior study. Similar changes although to a lesser extent are identified along the medial right iliac bone Additional findings: None pertinent. IMPRESSION: There small bilateral posterior layering pleural effusions with compressive atelectasis lower lobes. Partially calcified mass along the posterior dome of the liver has remained stable Postsurgical changes from cholecystectomy The hypoattenuating structure in the upper pole the right kidney measures approximate 2.9 cm in diameter and represents a calyceal diverticulum which was demonstrated on the prior CT only after the 17 minute delayed image at which time the diverticulum filled with contrast.. Juárez catheter is noted within the bladder which is not decompressed.. Air is also noted within the bladder which may be related to the Juárez catheter although the differential diagnosis would include infection with gas-forming organism or fistula.. The uterus is atrophic and retroverted. Endometrial stripe is hypodense and dilated at 1.6 cm which is abnormal for postmenopausal woman. Clinical follow- up needed Moderate hiatal hernia Additional chronic findings as described Report Dictated By: Dorene Baires MD at 09/15/2018 2:20 PM Report E-Signed By: Dorene Baires MD at 09/15/2018 2:55 PM WSN:[email or web address] [id number] Hospital Course/Plan She will be transferred to [facility] to continue her rehabilitative therapy with PT/OT. She will also complete a course of antibiotics with Omnicef 300mg PO BID for 5 more days. Condition: Improved Time Spent: > 30 min Disposition: SNF/NH ([facility]) Treatment Goals and Plan Patient requires long-term and/or skilled rehabilitation with the goal to increase independence with ADL's, functional strength and mobility. Continue and adjust medication regimen. Services Required: PT, OT Copies To 1: EMILY MOON ; Problem Qualifiers (1) Urinary tract infection: Urinary tract infection type: site unspecified Hematuria presence: without hematuria Qualified Codes: N39.0 - Urinary tract infection, site not specified (2) Acute renal failure: Acute renal failure type: unspecified Qualified Codes: N17.9 - Acute kidney failure, unspecified (3) Rhabdomyolysis: Rhabdomyolysis type: traumatic Encounter type: initial encounter Qualified Codes: T79.6XXA - Traumatic ischemia of muscle, initial encounter GALLO MCKEON MD September 16, 2018 08:23
[2018-09-16] MEDS ORDERED: CEFDINIR 300 MG CAP PO SCH (09:00)
[2018-09-17] MEDS ORDERED: POLY10DR6 OU (16:32)
[2018-09-17] MEDS ORDERED: GABA250S3 PO (16:32)
== END 2018-09-16 09:29 | DRG 683 ==
LOC: ER 18:03 → MED 22:35
PROVIDERS: ADMIT Internal Medicine; ATTEND Internal Medicine
DX: N17.9 Acute kidney failure, unspecified (principal); N39.0 Urinary tract infection, site not specified; T79.6XXA Traumatic ischemia of muscle, initial encounter; E87.6 Hypokalemia; E86.0 Dehydration; R34 Anuria and oliguria; Z66 Do not resuscitate; I95.9 Hypotension, unspecified; Z88.0 Allergy status to penicillin; Z88.8 Allergy status to other drugs, medicaments and biological substances
CPT/HCPCS: 36415; 70450; 74178; 76705; 81001; 82040; 82247; 82310; 82374; 82435; 82550; 82565; 82570; 82947; 83605; 83735; 84075; 84100; 84132; 84155; 84295; 84300; 84450; 84460; 84484; 84520; 85025; 85651; 87040; 93005; 96360; 97162; 97166; 99285; A4338; A4353; J0696; J7030; Q9967

== ENCOUNTER → 2018-09-13 | Outpatient (CLI) | payer MEDICARE, BC ==
[2014-06-22 15:00] VITALS: BMI 20.5
[~2018-09-13] MED LIST: CITA-145 PO; CRAN1CAP9 PO; GABA250S3 PO; HYDR-317 PO; LANS30CA70 PO; METH1TAB58 PO; OMEP-218 PO; POLY10DR6 OU; TRAZ50 PO; VIT1CAPS9 PO
== END ==
LOC: AMB 17:27
PROVIDERS: ATTEND Nurse Practitioner
DX: R53.1 Weakness (principal); M54.5 Low back pain
CPT/HCPCS: A0425; A0427

== ENCOUNTER 2018-09-16 09:29 | Inpatient (IN) | payer MEDICARE, BC ==
[2014-06-22 15:00] VITALS: Ht 177.8 cm; Wt 57.7 kg
[~2018-09-16] VITALS: Ht 177.8 cm; Wt 57.7 kg
[~2018-09-16 09:29] MED LIST changes: +CITA-145 PO; +CRAN1CAP9 PO; +METH1TAB58 PO; +VIT1CAPS9 PO
[2018-09-16] MEDS ORDERED: CEFDINIR 300 MG CAP PO SCH (09:46)
[2018-09-16] MEDS ORDERED: POTASSIUM CHL 10 MEQ TABCR PO SCH (09:46)
[2018-09-16 09:50] VITALS: BP 126/62
--- NOTE | 2018-09-16 12:20 | NUR ---
Physical Therapy Impression PT eval completed followed by treatment session and TUG test done in 1 min 7 seconds. Pt demos perseveration regarding need for shoes to ambulate more safely. PT contacted med/surg dept to determine if shoes were left in previous room. Please refer to eval note for details of mobility with visit. Physical Therapy Goals 1. Pt to be indep with bed mobility and sup<>sit trnsfrs 2. Pt to be indep with sit to/from stand transfers 3. Pt to be modified indep with ambulation with FWW x 150' 4. Pt to be modified indep with up/down platform step with least restrictive device. Patient's Goals
--- NOTE | 2018-09-16 14:37 | Medical Nutrition Therapy ---
Nutrition Anthropometrics Height (Inches): 70 Weight (Pounds): 128 (from medical unit) BMI: 18.4 Caleb Nutrition Score: Probably Inadequate Caleb Nutrition Risk Score: 17 Dietary Referral Nutrition Risk Factors: Unplanned Loss >10lbs Nutrition Risk Comment: Physical Findings Physical Appearance: Underweight BMI<19 Skin Appearance Skin Appearance: Edema Edema Location Modifier: Edema Location: Type of Edema: Degree of Edema: Gastrointestinal Symptoms GI Symtoms: Tube Present: Bowel Sounds: Recent Bowel Pattern: Stool Characteristics: Nutritional Diagnosis Nutritional Risk Acuity 3: Eat/Chew Problem, %IBW 81-89% Nutritional Acuity: 3-Mild Energy Requirement: 1425 (MSY) Protein Requirement: 58 (1gm/kg) Fluid Requirement: 1425 (25ml/kg) Diet Type: Diet as Tolerated DOV/REG Nutrition Intervention: Cont diet as ordered, Encourage intake, Between meal supplement Food Likes: easy to chew foods Food Dislikes: spinach Additional Diet Restrictions: OFFER NUTR SUPPLMENT Diet Comment To RSA: OFFER [id number] FOODS Nutrition Monitoring & Eval Nutrition Goals: Eat 50-100% Meal RD Patient Assessment Time: [address] Assessment Type: RD Assessment Patient Nutrition Acuity: 3-Mild Follow Up Date: September 23, 2018 Nutritional Comment: 09/17 Pt was admitted to med unit for ARF & Rhabdomyolysis. BUN is now WNR at 13. Creatinine is now WNR at 0.5. Alb 2.8. Pt on regualr diet and eating 75% of meals. BMI is in underwt range. Pt states has always been thin and 128# is within her usual range. Pt states dislikes spinach and wants easy to chew foods. Will offer nutr supplment to increase kca and protein intake. LINDA WOODARD September 16, 2018 14:37
[2018-09-16] MEDS: POTASSIUM CHL 10 MEQ TABCR PO SCH (17:02)
--- NOTE | 2018-09-16 17:36 | OT ECF NOTE ---
Type of Note: Initial Note Primary Medical Diagnosis: Generalized weakness s/p hospital admission for fall at home with rhabdomyolysis, UTI, ARF, increased troponin Occupational Therapy Evaluation Date: 09/16/18 SUBJECTIVE: Prior Hospitalization: H 09/13/18 thru 09/16/18 Prior Level of Function: Independent with ADLs. Assist from family/neighbors for IADLs. Pt reports MOW 2x/week and does not drive. Ambulates with 4WW. Reports no history of falls prior to fall that led to admission. Prior Living Status: Bi-level house Alone Assist by family Assist by friends Community Services: Meals on Wheels Home Accessibility: Stairs with rails All needs on one level Basement in home-Does not access basement Tub/shower combination-Pt reports bathing 1x/week at maximum Equipment Owned: Rollator Medical Complications/Past Medical History: See EMR Psychosocial Support: Supportive neighbors, 2 sons in [place] Pain Scale (0-10): None reported at time of initial evaluation OBJECTIVE: Strength: MMT: Right Left Shoulder Flexion WFL WFL Elbow Flexion WFL WFL Wrist Extension WFL WFL [employer] WFL WFL (5= normal, 4= good, 3= fair, 2= poor, 1= trace) ROM: Both upper extremities, WFL Sensation: 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 Pt prefers to ambulate with shoes with supportive inserts. Will follow. Toileting: Assistive device: Toileting ability: N/T Grooming/hygiene: Assistive device: Grooming ability: : N/T Bathing: Assistive device: Bathing ability: : N/T Standardized Assessment: Billy Index of Activities of Daily Livin/20 upon initial evaluation (09/16/18). ASSESSMENT: Sarita presents to [facility] below baseline requiring increased assist for ADLs/IADLs. She will benefit from skilled OT services to improve activity tolerance and optimize independence for ADLs prior to discharge home alone. Problem List/Current Limitations: Decreased activity tolerance Decreased strength Decreased balance Generalized weakness Short Term Goals: 1) Pt will be Mod (I) UB/LB dressing. 2) Pt will be Mod (I) toilet task. 3) Pt will be Independent grooming/hygiene. 4) Pt Billy Index of ADLs score will improve by 2 points. 5) Pt will be SBA shower task. 6) Pt will be (I) light meal prep task. [employer] Goals: Return to least restrictive environment Patient Goals: Return home Rehabilitation Prognosis: Good Barriers to Discharge: Fear and anxiety with functional mobility PLAN: The patient will benefit from skilled occupational therapy services 5 times per week for 2 weeks including: Ther ex ADL training Safety training Ther act IADL training Transfer training Adaptive equip training Bed mobility Energy conservation Thank you for this referral. If you have any questions, concerns, or comments about this report or plan, please contact me at . Ольга Rodriges MS, OTR/L Occupational Therapist [facility]
[2018-09-16] MEDS: ACETAMINOPHEN 325 MG TAB PO PRN (19:00)
--- NOTE | 2018-09-16 20:15 | Antimicrobial Stewardship ---
Antimicrobial Stewardship Comment Antimicrobial Stewardship Empiricly appropriate: Yes Comment Rocephin 1 gm IVP daily for UTI. Approriate Cultures done: No Renal/Hepatic dosing: Yes Reviewed for Drug Interaction: Yes Monitored for Toxicities: Yes Clinically stable/improving: Yes IV to PO Opportunity: Yes Determine cumulative duration: 3 to 7 days YESICA LONDON September 15, 2018 17:34 YESICA LONDON September 16, 2018 20:15
[2018-09-16 20:20] VITALS: BP 134/78
[2018-09-16] MEDS: CEFDINIR 300 MG CAP PO SCH (20:45)
[2018-09-17 08:19] VITALS: BP 163/80
[2018-09-17] MEDS: BETA-CAROTENE(A) & E/MIN TAB PO SCH (08:50)
[2018-09-17] MEDS: POTASSIUM CHL 10 MEQ TABCR PO SCH ×2 (08:50→17:10)
[2018-09-17] MEDS: CITALOPRAM HYDROBROM 20 MG TAB PO SCH (08:50)
[2018-09-17] MEDS: CEFDINIR 300 MG CAP PO SCH ×2 (08:50→20:52)
--- NOTE | 2018-09-17 12:09 | NUR ---
Occupational Therapy Impression Pt alert and agreeable to OT tx. Pt concerned regarding lack of BM and frequent urination. Nursing notified. SBA supine to sit. Max A donning shoes. Mod A toileting. CGA standing sinkfront for hygiene. CGA ambulation x100ft with 4WW. Pt utilizes 4WW at baseline although requires v/c's and strict CGA for safety. Continue POC. Occupational Therapy Goals 1) Pt will be Mod (I) UB/LB dressing. 2) Pt will be Mod (I) toilet task. 3) Pt will be Independent grooming/hygiene. 4) Pt Billy Index of ADLs score will improve by 2 points. 5) Pt will be SBA shower task. 6) Pt will be (I) light meal prep task. Patient's Goal
--- NOTE | 2018-09-17 13:39 | NUR ---
Physical Therapy Impression Pt is doing well, does need some encouragement to participate. Min A supine to sit. CGA sit <> stand from EOB and standard chair in ECF dining room. VC's for safety with 4WW breaks. Ambulation x 80' with 4WW, CGA. Pt up in ECF dining room for lunch at end of session. Cont. with POC. Physical Therapy Goals Patient's Goals
[2018-09-17] MEDS ORDERED: MAGNESIUM HYDROXIDE* 30ML UDCP PO PRN (14:15)
[2018-09-17] MEDS ORDERED: BISACODYL 10 MG SUPP PR PRN (14:15)
--- NOTE | 2018-09-17 15:15 | Consultant Pharmacy Review ---
Machine Bobbin Winder Review Medication Review Do All Mecications have a Diag: Yes Other General Cautions Glycol-Electrolyte Solution / Bisacodyl Risk Rating C: Monitor therapy Summary Bisacodyl may enhance the adverse/toxic effect of Polyethylene Glycol- Electrolyte Solution. Severity Major Reliability Rating Fair Patient Management Monitor closely for mucosal ulceration or ischemic colitis with concomitant administration of polyethylene glycol-electrolyte solution and bisacodyl. Discussion The prescribing information for some polyethylene glycol-electrolyte solution products advises to avoid concurrent use with stimulant laxatives (eg, bisacodyl, sodium picosulfate) due to an increased risk of mucosal ulceration or ischemic colitis.1 The presumed mechanism for this possible interaction is unknown and, notably, some polyethylene glycol-electrolyte solution products are manufactured as combination products that include stimulant laxatives. Footnotes 1. Plenvu (polyethylene glycol 3350, sodium ascorbate, sodium sulfate, ascorbic acid, sodium chloride and potassium chloride for oral solution). [facility]: [employer]; August 2017. Pneumococcal Vaccine HX Pneumo Vac ([id number]): Yes (No record at [facility]'s office, 09/16/18) HX Pneumo Vac (Pneumovax): No (No record at [facility]'s office, 09/16/18) Comments Regarding the Review Patient may receive the pneumiovax vaccine if she desires. Labs: periodic electrolyte levels. YANELY RICH September 17, 2018 15:15
[2018-09-17 15:28] VITALS: BP 121/71
[2018-09-17] MEDS ORDERED: GABA250S3 PO (16:32)
[2018-09-17] MEDS ORDERED: POLY10DR6 OU (16:32)
[2018-09-17] MEDS: DOCUSATE SODIUM 100 MG CAP PO SCH (20:53)
[2018-09-17] MEDS: CARBAMIDE PEROX 6.5% OT SOLN EACH EAR SCH (20:53)
[2018-09-18 07:30] VITALS: BP 144/72
[2018-09-18] MEDS: POTASSIUM CHL 10 MEQ TABCR PO SCH ×2 (08:51→17:12)
[2018-09-18] MEDS: BETA-CAROTENE(A) & E/MIN TAB PO SCH (08:51)
[2018-09-18] MEDS: POLYETHYLENE GLYCOL 17 GM PKT PO SCH (08:51)
[2018-09-18] MEDS: CITALOPRAM HYDROBROM 20 MG TAB PO SCH (08:51)
[2018-09-18] MEDS: CEFDINIR 300 MG CAP PO SCH ×2 (08:54→20:39)
[2018-09-18] MEDS: CARBAMIDE PEROX 6.5% OT SOLN EACH EAR SCH ×2 (09:00→20:39)
--- NOTE | 2018-09-18 09:13 | NUR ---
Occupational Therapy Impression Pt. performed toileting activities with SBA, UB dressing with ANDERSON and LB dressing activities with Min A. Pt. required CGA and verbal cues for safety to ambulate 200 feet with use of rollator walker. Continue with POC. Occupational Therapy Goals 1) Pt will be Mod (I) UB/LB dressing. 2) Pt will be Mod (I) toilet task. 3) Pt will be Independent grooming/hygiene. 4) Pt Billy Index of ADLs score will improve by 2 points. 5) Pt will be SBA shower task. 6) Pt will be (I) light meal prep task. Patient's Goal
--- NOTE | 2018-09-18 10:46 | ECF History & Physical ---
Transfer Summary (F/[facility]) Problems: (1) Urinary tract infection Status: Acute Assessment & Plan: She did have leukocytes and bacteria in her urine. She also had an elevated WBC count. A culture is not available as it was not done on the ER specimen. She was placed on empiric treatment with IV ceftriaxone initially. She will be transitioned to oral Omnicef 300mg PO BID for 5 more days to complete a 7 day course of therapy. (2) Acute renal failure Status: Acute Assessment & Plan: Secondary to dehydration and/or a component of rhabdomyolysis. She improved with IV fluids and creatinine is now in normal range. Will continue to monitor lab periodically. (3) Rhabdomyolysis Status: Acute Assessment & Plan: She was found on the floor for an unknown period of time. Her CPK was elevated at just under 5000. She has been improving with hydration. Her CPK did come down to under 300 prior to transfer. She was working with PT/OT regarding her mobility/strength/safety. It was recommended she have short- term/subacute rehabilitation prior to returning home. She will be transferred to [facility] to continue her rehab. (4) Elevated troponin Status: Acute Assessment & Plan: Likely secondary to acute renal failure/rhabdomyolysis. It is possible she may have have some troponin leak due to "strain" due to borderline hypotension. Her levels have been returning to normal. (5) Hypokalemia Status: Acute Assessment & Plan: Mild. Most likely due to decreased intake. She will be on oral replacement for several days. Will plan on recheck labs in 5-7 days. Latest Vital Signs Vital Signs Date Time Temp Pulse Resp B/P (MAP) Pulse Ox O2 Delivery O2 Flow Rate FiO2 09/16/18 07:11 98 Nasal Cannula 1.5 09/16/18 07:11 98.4 63 16 141/80 (100) Result Diagram: 09/16/18 0547 09/16/18 0547 Diagnostics Item Value Date Time Sodium Level 135 mmol/L L 09/13/181918 Potassium Level 4.2 mmol/L 09/13/181918 Chloride Level 98 mmol/L 09/13/181918 Carbon Dioxide Level 21 mmol/L L 09/13/181918 Blood Urea Nitrogen 50 mg/dl H 09/13/181918 Creatinine 2.10 mg/dl H 09/13/181918 Glomerular Filtration Rate Calc 22.3 09/13/181918 Random Glucose 108 mg/dl 09/13/181918 Calcium Level 9.1 mg/dl 09/13/181918 Total Bilirubin 0.4 mg/dl 09/13/181918 Aspartate Amino Transf (AST/SGOT) 181 U/L H 09/13/181918 Alanine Aminotransferase (ALT/SGPT) 51 U/L 09/13/181918 Alkaline Phosphatase 93 U/L 09/13/181918 Total Creatine Kinase 4658 U/L H 09/13/181918 Troponin I 0.324 ng/ml *H 09/13/181918 Total Protein 6.8 g/dl 09/13/181918 Albumin 3.6 g/dl 09/13/181918 Lactate 1.3 mmol/L 09/13/182235 Troponin I 0.166 ng/ml *H 09/14/18 0557 Troponin I 0.253 ng/ml *H 09/14/183 Troponin I 0.068 ng/ml 09/15/18 0532 Total Creatine Kinase 237 U/L H 09/16/18 0547 Total Creatine Kinase 2653 U/L H 09/14/18 0557 Phosphorus Level 5.1 mg/dl H 09/14/183 Phosphorus Level 4.5 mg/dl 09/14/1857 Urine Random Sodium 35 MEQ/L 09/13/182001 Urine Random Creatinine 69.6 mg/dl 09/13/182001 PATIENT NAME: Sarita Griffith : 1930 MR: [id number] V: [id number] EXAM DATE: ORDERING PHYSICIAN: KIMBERLEE NOGUERA TECHNOLOGIST: Location: [facility] [place] Patient: Sarita Griffith : 1930 Visit/Account:[id number] Date of Sevice: 09/13/2018 EXAMINATION: CT head without IV contrast HISTORY: Weakness, dizziness. TECHNIQUE: Axial CT images of the head were obtained from the vertex to the skull base without IV contrast, with coronal and sagittal 2D reconstructed images. One of the following dose optimization techniques was utilized in the performance of this exam: Automated exposure control; adjustment of the mA and/or kV according to the patient's size; or use of an iterative reconstruction technique. Specific details can be referenced in the facility's radiology CT exam operational policy. COMPARISON: None. FINDINGS: There is mild generalized parenchymal atrophy, with mild patchy low attenuation in the deep white matter compatible with chronic small vessel ischemic change. Intracranial vascular calcifications. No CT evidence of intracranial hemorrhage, mass lesion, or acute infarct. No midline shift or extra-axial fluid collections. Zheng-white differentiation is maintained. The calvarium is intact. The partially visualized paranasal sinuses and mastoid air cells are unopacified. IMPRESSION: 1. No CT evidence of acute intracranial pathology. 2. Mild chronic age-related changes. Report Dictated By: Clarence Vines MD at 09/13/2018 7:17 PM Report E-Signed By: Clarence Vines MD at 09/13/2018 7:28 PM WSN:[id number] PATIENT NAME: Sarita Griffith : 1930 MR: [id number] V: [id number] EXAM DATE: [id number] ORDERING PHYSICIAN: GEOVANNY MEHTA TECHNOLOGIST: Location: [facility] [place] Patient: Sarita Griffith : 1930 Visit/Account:[id number] Date of Sevice: 09/13/2018 KIDNEYS HISTORY: JULITO COMPARISON: None. FINDINGS: Kidneys: Right kidney- 10.4 cm in length with hypoechoic irregularly-shaped mass in the upper pole, 3.2 x 2.4 x 3.3 cm. The mass demonstrates increased through transmission. Remaining portions of the kidney demonstrate normal echotexture, without evidence of hydronephrosis or calculus.. Left kidney- 10.4 cm in length with a 2.8 cm cyst in the upper pole. There is no suspicious mass or calculus.. Uniform and symmetric blood flow in each kidney by Doppler ultrasound. Bladder: There is a Juárez catheter in the urinary bladder.. Abdominal aorta and IVC: Patent by Doppler ultrasound. IMPRESSION: 1. Hypoechoic mass upper pole right kidney, 3.2 cm. This demonstrates increased through transmission, suggesting this may represent a hemorrhagic cyst or proteinaceous cyst. A solid mass is felt to be less likely however is in the differential diagnosis. Recommend a CT of the abdomen without and with IV contrast for further evaluation. 2. Simple cyst upper pole left kidney. Report Dictated By: Alec Worthington at 09/14/2018 2:41 PM Report E-Signed By: Alec Worthington at 09/14/2018 2:45 PM WSN:[id number] PATIENT NAME: Sarita Griffith : 1930 MR: [id number] V: [id number] EXAM DATE: ORDERING PHYSICIAN: EMMANUEL LAIRD TECHNOLOGIST: Location: [facility] [place] Patient: Sarita Griffith : 1930 Visit/Account:[id number] Date of Sevice: 09/15/2018 CT ABDOMEN PELVIS W & W/O CONTRAST HISTORY: Right Renal Mass TECHNIQUE: Axial images acquired through the abdomen/pelvis both with and without IV contrast.. Coronal and sagittal reformatting also performed.Dose Lowering Technique One of the following dose optimization techniques was utilized in the performance of this exam: Automated exposure control; adjustment of the mA and/or kV according to the patient's size; or use of an iterative reconstruction technique. Specific details can be referenced in the facility's radiology CT exam operational policy. CONTRAST: 75 mL Isovue-370 COMPARISON: Renal ultrasound September 13, [address] of abdomen and pelvis May 18, 2014 FINDINGS: Visualized lung bases: There small bilateral posterior layering pleural effusions with compressive atelectasis in the lower lobes. Linear scarring and/or atelectasis in the lower lobes has slightly increased as well. There is calcifications of the mitral annulus Hepatobiliary: 2 cm partially calcified mass posterior dome of the liver has remained stable. There is a tiny subcentimeter cyst anterolateral right lobe that also remains stable . There are postsurgical changes from a cholec ystectomy Spleen: Negative. Adrenals: Is mild thickening the adrenal glands Pancreas: Negative. Kidneys ureters and bladder: There is a 3.2 cm cyst upper pole of the left kidney.. The hypoattenuating structure in the upper pole of the right kidney measuring approximately 2.9 cm in diameter and represents a large calyceal diverticulum which was demonstrated on the prior CT only after a 17 minute delayed image with resultant filling of the diverticulum with excreted contrast. A Juárez catheter is present within the urinary bladder although the bladder does not appear decompressed. Air is noted within the urinary bladder Genitalia: Uterus is atrophic and retroverted. The endometrial stripe is dilated at 1.6 cm which is abnormal for postmenopausal woman GI: Surgical gilles are seen at the cecum. There is a moderate amount of fecal material seen in the colon which can be seen with constipation. There is a moderate size hiatal hernia Vessels/spaces/nodes: There moderate atherosclerotic calcifications of the abdominal aorta and branch vessels Bones/soft tissues: Mottled appearance to the medial left iliac bone appears stable when compared the prior study. Similar changes although to a lesser extent are identified along the medial right iliac bone Additional findings: None pertinent. IMPRESSION: There small bilateral posterior layering pleural effusions with compressive atelectasis lower lobes. Partially calcified mass along the posterior dome of the liver has remained stable Postsurgical changes from cholecystectomy The hypoattenuating structure in the upper pole the right kidney measures approximate 2.9 cm in diameter and represents a calyceal diverticulum which was demonstrated on the prior CT only after the 17 minute delayed image at which time the diverticulum filled with contrast.. Juárez catheter is noted within the bladder which is not decompressed.. Air is also noted within the bladder which may be related to the Juárez catheter although the differential diagnosis would include infection with gas-forming organism or fistula.. The uterus is atrophic and retroverted. Endometrial stripe is hypodense and dilated at 1.6 cm which is abnormal for postmenopausal woman. Clinical follow- up needed Moderate hiatal hernia Additional chronic findings as described Report Dictated By: Dorene Baires MD at 09/15/2018 2:20 PM Report E-Signed By: Dorene Baires MD at 09/15/2018 2:55 PM WSN:[id number] [id number] Hospital Course/Plan She will be transferred to [facility] to continue her rehabilitative therapy with PT/OT. She will also complete a course of antibiotics with Omnicef 300mg PO BID for 5 more days. Condition: Improved Time Spent: > 30 min Disposition: SNF/NH ([facility]) Treatment Goals and Plan Patient requires custodial and/or skilled rehabilitation with the goal to increase independence with ADL's, functional strength and mobility. Continue and adjust medication regimen. Services Required: PT, OT Copies To 1: EMILY MOON ; Problem Qualifiers (1) Urinary tract infection: Urinary tract infection type: site unspecified Hematuria presence: without hematuria Qualified Codes: N39.0 - Urinary tract infection, site not specified (2) Acute renal failure: Acute renal failure type: unspecified Qualified Codes: N17.9 - Acute kidney failure, unspecified (3) Rhabdomyolysis: Rhabdomyolysis type: traumatic Encounter type: initial encounter Qualified Codes: T79.6XXA - Traumatic ischemia of muscle, initial encounter GALLO MCKEON MD September 16, 2018 08:23 <Electronically signed by GALLO MCKEON MD> D/ 7 2 2 ELIE/PRANEETH CC: EMILY MOON MTDD
[2018-09-18] MEDS: DOCUSATE SODIUM 100 MG CAP PO SCH ×2 (10:57→20:39)
[2018-09-18 17:30] VITALS: BP 125/82
[2018-09-19 08:00] VITALS: BP 155/79
[2018-09-19] MEDS: BETA-CAROTENE(A) & E/MIN TAB PO SCH (08:58)
[2018-09-19] MEDS: CITALOPRAM HYDROBROM 20 MG TAB PO SCH (08:58)
[2018-09-19] MEDS: POLYETHYLENE GLYCOL 17 GM PKT PO SCH (08:58)
[2018-09-19] MEDS: POTASSIUM CHL 10 MEQ TABCR PO SCH ×2 (08:58→17:31)
[2018-09-19] MEDS: CARBAMIDE PEROX 6.5% OT SOLN EACH EAR SCH ×2 (08:58→20:35)
[2018-09-19] MEDS: CEFDINIR 300 MG CAP PO SCH ×2 (08:59→20:36)
[2018-09-19] MEDS: DOCUSATE SODIUM 100 MG CAP PO SCH ×2 (08:59→20:36)
--- NOTE | 2018-09-19 09:29 | NUR ---
Occupational Therapy Impression Pt. ambulated 200 ft with use of rollator walker with verbal cues to lock walker prior to performing sit<> stand transfers. Pt. performed toileting and grooming activities, standing sink front, with SBA. Continue with POC. Occupational Therapy Goals 1) Pt will be Mod (I) UB/LB dressing. 2) Pt will be Mod (I) toilet task. 3) Pt will be Independent grooming/hygiene. 4) Pt Billy Index of ADLs score will improve by 2 points. 5) Pt will be SBA shower task. 6) Pt will be (I) light meal prep task. Patient's Goal
--- NOTE | 2018-09-19 16:24 | NUR ---
Physical Therapy Impression Pt progressing well with PT tx and voices only concern is being alone. Pt states she [facility]. Physical Therapy Goals 1. Pt to be indep with bed mobility and sup<>sit trnsfrs 2. Pt to be indep with sit to/from stand transfers 3. Pt to be modified indep with ambulation with FWW x 150' 4. Pt to be modified indep with up/down platform step with least restrictive device. Patient's Goals
[2018-09-19 17:25] VITALS: BP 139/76
[2018-09-20 08:00] VITALS: BP 137/81
[2018-09-20] MEDS: DOCUSATE SODIUM 100 MG CAP PO SCH ×2 (08:52→20:52)
[2018-09-20] MEDS: CITALOPRAM HYDROBROM 20 MG TAB PO SCH (08:52)
[2018-09-20] MEDS: POTASSIUM CHL 10 MEQ TABCR PO SCH ×2 (08:52→17:35)
[2018-09-20] MEDS: POLYETHYLENE GLYCOL 17 GM PKT PO SCH (08:52)
[2018-09-20] MEDS: CEFDINIR 300 MG CAP PO SCH ×2 (08:52→20:52)
[2018-09-20] MEDS: BETA-CAROTENE(A) & E/MIN TAB PO SCH (08:52)
[2018-09-20] MEDS: ACETAMINOPHEN 325 MG TAB PO PRN ×2 (08:54→17:35)
[2018-09-20] MEDS: CARBAMIDE PEROX 6.5% OT SOLN EACH EAR SCH ×2 (09:00→20:52)
--- NOTE | 2018-09-20 11:16 | NUR ---
Physical Therapy Impression Pt initially required Karthik to rise to seated position from chair. At end of session, PT instructed pt in 2 rounds of 5x STS transfers with cues for sequencing prior to standing as well as emphasis on eccentric control with stand to transition. Pt improved and completed final transfers with CGA.Ambulation x180' with 4WW, with PT providing step by step instruction for safety with use of 4WW for seated rest break during ambulation. Pt will benefit from further skilled PT intervention, prior to d/c home. Physical Therapy Goals 1. Pt to be indep with bed mobility and sup<>sit trnsfrs 2. Pt to be indep with sit to/from stand transfers 3. Pt to be modified indep with ambulation with FWW x 150' 4. Pt to be modified indep with up/down platform step with least restrictive device. Patient's Goals
[2018-09-20 15:20] VITALS: BP 114/70
[2018-09-21] MEDS: ACETAMINOPHEN 325 MG TAB PO PRN ×2 (06:11→20:40)
[2018-09-21 07:15] VITALS: BP 124/72
[2018-09-21] MEDS: CEFDINIR 300 MG CAP PO SCH (08:20)
[2018-09-21] MEDS: BETA-CAROTENE(A) & E/MIN TAB PO SCH (08:20)
[2018-09-21] MEDS: DOCUSATE SODIUM 100 MG CAP PO SCH ×2 (08:20→20:40)
[2018-09-21] MEDS: POLYETHYLENE GLYCOL 17 GM PKT PO SCH (08:20)
[2018-09-21] MEDS: POTASSIUM CHL 10 MEQ TABCR PO SCH (08:20)
[2018-09-21] MEDS: CITALOPRAM HYDROBROM 20 MG TAB PO SCH (08:20)
[2018-09-21] MEDS: CARBAMIDE PEROX 6.5% OT SOLN EACH EAR SCH ×2 (08:21→20:40)
--- NOTE | 2018-09-21 11:45 | Medical Nutrition Therapy ---
Nutrition Anthropometrics Height (Inches): 70 Weight (Pounds): 128 (from medical unit) BMI: 18.4 Caleb Nutrition Score: Probably Inadequate Caleb Nutrition Risk Score: 17 Dietary Referral Nutrition Risk Factors: Unplanned Loss >10lbs Nutrition Risk Comment: Physical Findings Physical Appearance: Underweight BMI<19 Skin Appearance Skin Appearance: Edema Edema Location Modifier: Edema Location: Type of Edema: Degree of Edema: Gastrointestinal Symptoms GI Symtoms: Tube Present: Bowel Sounds: Recent Bowel Pattern: Stool Characteristics: Nutritional Diagnosis Nutritional Risk Acuity 3: Eat/Chew Problem, %IBW 81-89% Nutritional Acuity: 3-Mild Energy Requirement: 1425 (MSY) Protein Requirement: 58 (1gm/kg) Fluid Requirement: 1425 (25ml/kg) Diet Type: Diet as Tolerated DOV/REG Nutrition Intervention: Cont diet as ordered, Encourage intake, Between meal supplement Food Likes: easy to chew foods Food Dislikes: spinach Additional Diet Restrictions: OFFER NUTR SUPPLMENT Diet Comment To [facility]: OFFER [id number]-[id number] FOODS Nutrition Monitoring & Eval Nutrition Goals: Eat 75-100% Meal Nutrition Follow-Up: Good Intake RD Patient Assessment Time: [address] Assessment Type: RD Re-Assessment Patient Nutrition Acuity: 3-Mild Follow Up Date: Sep 30, 2018 Nutritional Comment: 09/17 Pt was admitted to med unit for ARF & Rhabdomyolysis. BUN is now WNR at 13. Creatinine is now WNR at 0.5. Alb 2.8. Pt on regualr diet and eating 75% of meals. BMI is in underwt range. Pt states has always been thin and 128# is within her usual range. Pt states dislikes spinach and wants easy to chew foods. Will offer nutr supplment to increase kca and protein intake. DEIDRE 09/21 Pt cont on regular diet. pt eain 75-100% of small to regular portion with occasional nutritional supplment. No new labs or wt. Will cont to monitor and encourage intake. LINDA WOODARD September 21, 2018 11:45
--- NOTE | 2018-09-21 14:47 | NUR ---
Patient had shower this morning Came out to the dinning area for breakfast, needed to be lifted to sit up and to stand to transfer. Patient stated " my body is tired, and she doesnt feel good, she feels weak," patient stayed in bed for lunch and only gets up to use restroom. Patients bed was changed out and straightened up Addendum: 09/21/18 at 1449 by HAYDEE SHEARER Amended: Links added.
[2018-09-21 16:19] VITALS: BP 124/71
[2018-09-22 07:45] VITALS: BP 143/77
[2018-09-22] MEDS: POLYETHYLENE GLYCOL 17 GM PKT PO SCH (08:30)
[2018-09-22] MEDS: CITALOPRAM HYDROBROM 20 MG TAB PO SCH (08:30)
[2018-09-22] MEDS: BETA-CAROTENE(A) & E/MIN TAB PO SCH (08:30)
[2018-09-22] MEDS: CARBAMIDE PEROX 6.5% OT SOLN EACH EAR SCH ×2 (08:30→21:09)
[2018-09-22] MEDS: DOCUSATE SODIUM 100 MG CAP PO SCH ×2 (08:30→21:09)
[2018-09-22] MEDS: ACETAMINOPHEN 325 MG TAB PO PRN ×2 (08:33→21:09)
--- NOTE | 2018-09-22 10:12 | NUR ---
Physical Therapy Impression Patient performed STS transfers from chair with arms 2x5 reps with cuing for positioning and weight shift and to make sure brakes are locked before transferring. Patient also needed cuing for eccentric quad control and not to plop. Patient ambulated from room through OB to gym and back to room with 2 seated rest breaks. 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 Patient also received cuing to lock brakes and place 4WW up against a wall if sitting on walker for a seated rest break. Patient also performed this. Patient only complained of shoulder pain with ambulation. Patient reports she has had increased left shoulder pain which is limiting her ability to perform her ADL's. Discussed with OT and she will talk with nursing. She did place a HP on the patient at the end of her session. Physical Therapy Goals 1. Pt to be indep with bed mobility and sup<>sit trnsfrs 2. Pt to be indep with sit to/from stand transfers 3. Pt to be modified indep with ambulation with FWW x 150' 4. Pt to be modified indep with up/down platform step with least restrictive device. Patient's Goals
--- NOTE | 2018-09-22 11:56 | NUR ---
Occupational Therapy Impression Pt. performed all activities with SBA with exception of performing sit to stand transfer from toilet. Toilet does have an blueprinter on it, however, pt. is tall. OT will provide pt. with higher toilet seat to increase independence. Pt. is ready for d/c to [facility]. Continue with POC. Occupational Therapy Goals 1) Pt will be Mod (I) UB/LB dressing. 2) Pt will be Mod (I) toilet task. 3) Pt will be Independent grooming/hygiene. 4) Pt Billy Index of ADLs score will improve by 2 points. 5) Pt will be SBA shower task. 6) Pt will be (I) light meal prep task. Patient's Goal
--- NOTE | 2018-09-22 12:11 | NUR ---
KAITLIN completed 5-day MDS with pt. C: 15, D: 05, E: no concerns, Q: pt plans to DC to community, no referrals yet but may be needed. Will continue to follow for DC needs.
--- NOTE | 2018-09-22 12:40 | NUR ---
Patient is unable to fully pull up pants in the back, due to pain in her left shoulder into her back. Nurses have been notified, problem has been ongoing for 3 days now. Patient is also stating that her shoulder pain is on off aching and the highest pain number is an 8 at its worst, and a 6 regular. Addendum: 09/22/18 at 1242 by HAYDEE SHEARRE Amended: Links added. Addendum: 09/22/18 at 1415 by HAYDEE SHEARER Nurses were notified, recommened that PT, OT access the shoulder. Meantime hot packs and appointed meds were given to patient Addendum: 09/22/18 at 1420 by HAYDEE SHEARER Patient stated pain is a 6 to an 8, but stated " I dont prefer the number pain rating" so asked patient if it was a moderate pain. Patient said yes its moderate. On the scale in the room moderate is a 4. Verified by nurse
--- NOTE | 2018-09-22 13:59 | NUR ---
L arm pain Fabienne OT evaluated pt's L arm as pt was c/o increased pain. Fabienne raised the toilet seat and raised pt's walker to help reduce strain on pt's arms when pulling self up. Fabienne also tried a heat pack
--- NOTE | 2018-09-22 15:42 | NUR ---
Transfers Sarita transferred with taller walker to C that was set up (higher than toilet with riser) over toilet and appeared to do so with ease compared with transfers yesterday and today, so the increased height of both walker and toilet setup appeared to be helpful.
[2018-09-22 16:30] VITALS: BP 132/74
[2018-09-23] MEDS: CITALOPRAM HYDROBROM 20 MG TAB PO SCH (08:47)
[2018-09-23] MEDS: DOCUSATE SODIUM 100 MG CAP PO SCH ×2 (08:47→21:32)
[2018-09-23] MEDS: CARBAMIDE PEROX 6.5% OT SOLN EACH EAR SCH ×2 (08:48→21:32)
[2018-09-23] MEDS: POLYETHYLENE GLYCOL 17 GM PKT PO SCH (08:48)
[2018-09-23] MEDS: BETA-CAROTENE(A) & E/MIN TAB PO SCH (08:48)
[2018-09-23 10:11] VITALS: BP 134/77
[2018-09-23] MEDS: ACETAMINOPHEN 325 MG TAB PO PRN (10:45)
--- NOTE | 2018-09-23 11:38 | NUR ---
Physical Therapy Impression Adjusted patient's 4WW one notch to be higher and patient reports that this is more comfortable. Patient was I with bed mob without using the rail. Patient transferred STS with CGA and cuing for hand positioning and weight shift. 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 Patient cued for increased step length and improved heel strike of B feet. Patient ambulated from room to gym and then therapist performed oscillation and disctraction of left shoulder and joint mobs to left shoulder. Patient has decreased B foot clearance. Patient then ambulated back to her room SBA. Patient left in chair with hot pack placed to her left shoulder and was removed after 15 minutes by me. Physical Therapy Goals 1. Pt to be indep with bed mobility and sup<>sit trnsfrs 2. Pt to be indep with sit to/from stand transfers 3. Pt to be modified indep with ambulation with FWW x 150' 4. Pt to be modified indep with up/down platform step with least restrictive device. Patient's Goals
--- NOTE | 2018-09-23 12:37 | NUR ---
Occupational Therapy Impression Pt alert and agreeable to OT tx. Reporting "hurting all over." Decreased AROM to L UE limiting (I) and tolerance with ADLs. Independent bed mobility. Independent donning/doffing shoes. SBA ambulation with 4WW. V/c's for management of brakes. Ambulation on various surfaces and over thresholds. Min A sit<>stand from low, soft couch. Pt declined further ADLs. Recommend discharge to [facility] for assist for IADLs and ADLs as needed (inconsistent with (I). Occupational Therapy Goals 1) Pt will be Mod (I) UB/LB dressing. 2) Pt will be Mod (I) toilet task. 3) Pt will be Independent grooming/hygiene. 4) Pt Billy Index of ADLs score will improve by 2 points. 5) Pt will be SBA shower task. 6) Pt will be (I) light meal prep task. Patient's Goal
[2018-09-23 17:10] VITALS: BP 133/70
[2018-09-24 06:26] LABS: PLATELET COUNT, AUTOMATED 263 K/uL (150-450)
[2018-09-24 07:47] VITALS: BP 149/81
[2018-09-24] MEDS: BETA-CAROTENE(A) & E/MIN TAB PO SCH (08:30)
[2018-09-24] MEDS: DOCUSATE SODIUM 100 MG CAP PO SCH ×2 (08:30→20:30)
[2018-09-24] MEDS: ACETAMINOPHEN 325 MG TAB PO PRN (08:30)
[2018-09-24] MEDS: CARBAMIDE PEROX 6.5% OT SOLN EACH EAR SCH ×2 (08:30→20:30)
[2018-09-24] MEDS: CITALOPRAM HYDROBROM 20 MG TAB PO SCH (08:30)
[2018-09-24] MEDS: POLYETHYLENE GLYCOL 17 GM PKT PO SCH (08:31)
--- NOTE | 2018-09-24 10:52 | NUR ---
Patient refused Dinning Area Patient refused to come to dinning area for breaksfast and lunch, stated " I am not feeling well today sawmichael, I wanna stay in my room please." Addendum: 09/24/18 at 1058 by HAYDEE SHEARER Amended: Links added.
--- NOTE | 2018-09-24 12:54 | NUR ---
Occupational Therapy Impression SBA ambulation with 4WW. Pt requires v/c's for sequencing safe transfers and utilizing 4WW brakes. Demonstrates no carryover with safety. Pt requesting assist for all ADLs. Min A bathing. Min A for UB dressing due to pain in L) UE. Min A LB dressing. Pt demonstrates ability to complete (I)ly but requests assist. Recommend [facility] for assist with ADLs/IADLs as pt requests. Occupational Therapy Goals 1) Pt will be Mod (I) UB/LB dressing. 2) Pt will be Mod (I) toilet task. 3) Pt will be Independent grooming/hygiene. 4) Pt Billy Index of ADLs score will improve by 2 points. 5) Pt will be SBA shower task. 6) Pt will be (I) light meal prep task. Patient's Goal
--- NOTE | 2018-09-24 14:09 | Hospitalist Progress Note ---
Subjective Progress Notes Subjective She reports pain/limited ROM left shoulder for "a long time", which seems to be worsening. Physical Exam Vital Signs Date Time Temp Pulse Resp B/P (MAP) Pulse Ox O2 Delivery O2 Flow Rate FiO2 09/24/18 10:22 96 Room Air 09/24/18 07:47 98.1 74 14 149/81 (103) Intake and Output 09/24/18 07:00 Intake Total 840 ml Output Total 25 ml Balance 815 ml Intake Oral 840 ml Output Urine Total 25 ml # Voids 15 # Bowel Movements 4 General Appearance: Alert, Awake Cardiovascular: Regular Rate and Rhythm Respiratory: Clear to Auscultation GI: Soft and Non-Tender Extremities: Warm, Perfused, Edema (trace both ankles) Integumentary: Generalized Fragile Skin Result Diagram: 09/24/1849 09/24/18548 Assessment and Plan Problems: (1) Shoulder pain, left Status: Chronic Assessment & Plan: Will get x-ray to evaluate for possible causes. Suspect she may some chronic impingement or rotator cuff injury. Will continue with PT/OT. May need orthopedics to see. (2) Hypokalemia Status: Resolved Assessment & Plan: Resolved. Monitor periodically. (3) Rhabdomyolysis Status: Resolved Assessment & Plan: She was found on the floor for an unknown period of time. Her CPK was elevated at just under 5000 and did come down to under 300 prior to transfer to [facility]. She has been working with PT/OT regarding her mobility/strength/safety. (4) Acute renal failure Status: Acute Assessment & Plan: Secondary to dehydration and/or a component of rhabdomyolysis. She improved with IV fluids and creatinine is now in normal range. Will continue to monitor lab periodically. (5) Urinary tract infection Status: Acute Assessment & Plan: She did have leukocytes and bacteria in her urine. She also had an elevated WBC count. A culture is not available as it was not done on the ER specimen. She was placed on empiric treatment with IV ceftriaxone initially and transitioned to oral Omnicef 300mg PO BID for 5 more days to complete a 7 day course of therapy. Will monitor for any recurrent symptoms. (6) Elevated troponin Status: Acute Assessment & Plan: Likely secondary to acute renal failure/rhabdomyolysis. It is possible she may have have some troponin leak due to "strain" due to mary anne rderline hypotension. She has not had any concerning cardiac symptoms. GALLO MCKEON MD September 24, 2018 14:09
--- NOTE | 2018-09-24 16:18 | NUR ---
Physical Therapy Impression Pt demonstrates Mod I for sit>supine, Mod I to stand from toilet, and Mod I to ambulate 200' with 4 wheeled walker. Discussed [facility]. Pt voicing confidence this is the correct decision. Pt safe for this DC plan. Physical Therapy Goals 1. Pt to be indep with bed mobility and sup<>sit trnsfrs 2. Pt to be indep with sit to/from stand transfers 3. Pt to be modified indep with ambulation with FWW x 150' 4. Pt to be modified indep with up/down platform step with least restrictive device. Patient's Goals
--- NOTE | 2018-09-24 16:41 | RADIOLOGY IMAGING REPORT ---
FACILITY: [facility] [place] PATIENT NAME: Sarita Griffith : 1930 MR: [id number] V: [id number] EXAM DATE: ORDERING PHYSICIAN: GALLO MCKEON TECHNOLOGIST: Location: [facility] [place] Patient: Sarita Griffith : 1930 Visit/Account:[id number] Date of Sevice: 09/24/2018 INDICATION: left shoulder pain. DATE: 09/24/2018 4:33 PM. TECHNIQUE: SHOULDER MIN 2 VIEWS LEFT COMPARISON: None FINDINGS: Bony alignment without evidence of fracture or dislocation. Moderate degenerative findings at the glenohumeral joint. IMPRESSION: Moderate glenohumeral degenerative change. Report Dictated By: Pasquale Shields MD at 09/24/2018 4:33 PM Report E-Signed By: Pasquale Shields MD at 09/24/2018 4:37 PM WSN:[id number]
[2018-09-24 17:10] VITALS: BP 118/67
[2018-09-25 08:00] VITALS: BP 130/60
[2018-09-25] MEDS: CITALOPRAM HYDROBROM 20 MG TAB PO SCH (08:50)
[2018-09-25] MEDS: BETA-CAROTENE(A) & E/MIN TAB PO SCH (08:50)
[2018-09-25] MEDS: ACETAMINOPHEN 325 MG TAB PO PRN ×2 (08:50→20:28)
[2018-09-25] MEDS: DOCUSATE SODIUM 100 MG CAP PO SCH ×2 (08:50→20:28)
[2018-09-25] MEDS: CARBAMIDE PEROX 6.5% OT SOLN EACH EAR SCH ×2 (08:51→20:28)
[2018-09-25] MEDS: POLYETHYLENE GLYCOL 17 GM PKT PO SCH (09:00)
--- NOTE | 2018-09-25 13:38 | NUR ---
Occupational Therapy Impression Ambulating x200ft with multiple seated rest breaks utilizing 4WW. V/c's for safety with 4WW although pt verbalizing need to utilize brakes more with transfers. Independent toileting. Independent bed mobility. Independent doffing shoes. Independent grooming standing sinkfront. Pt requires significant encouragement to attempt ADLs (I)ly. Continue POC. Occupational Therapy Goals 1) Pt will be Mod (I) UB/LB dressing. 2) Pt will be Mod (I) toilet task. 3) Pt will be Independent grooming/hygiene. 4) Pt Billy Index of ADLs score will improve by 2 points. 5) Pt will be SBA shower task. 6) Pt will be (I) light meal prep task. Patient's Goal
--- NOTE | 2018-09-25 15:08 | NUR ---
Physical Therapy Impression Pt demonstrates poor tolerance to activity due to being "tired". SO2 and HR all WNL during exercise. Pt plans to DC to assisted living. Physical Therapy Goals 1. Pt to be indep with bed mobility and sup<>sit trnsfrs 2. Pt to be indep with sit to/from stand transfers 3. Pt to be modified indep with ambulation with FWW x 150' 4. Pt to be modified indep with up/down platform step with least restrictive device. Patient's Goals
[2018-09-25 17:05] VITALS: BP 130/72
[2018-09-26 08:20] VITALS: BP 116/58
[2018-09-26] MEDS: DOCUSATE SODIUM 100 MG CAP PO SCH ×2 (08:48→20:20)
[2018-09-26] MEDS: BETA-CAROTENE(A) & E/MIN TAB PO SCH (08:48)
[2018-09-26] MEDS: CITALOPRAM HYDROBROM 20 MG TAB PO SCH (08:48)
[2018-09-26] MEDS: CARBAMIDE PEROX 6.5% OT SOLN EACH EAR SCH (08:49)
[2018-09-26] MEDS: ACETAMINOPHEN 325 MG TAB PO PRN ×2 (08:49→17:16)
[2018-09-26] MEDS: POLYETHYLENE GLYCOL 17 GM PKT PO SCH (08:50)
--- NOTE | 2018-09-26 09:03 | NUR ---
Occupational Therapy Impression Independent bed mobility supine to sit. SBA ambulation [id number] with 4WW. V/c's for safety when utilizing 4WW to sit. Mod (I) toileting. Independent LB dressing. Pt nearing OT goals. Ready for discharge to [facility] when approved. Occupational Therapy Goals 1) Pt will be Mod (I) UB/LB dressing. 2) Pt will be Mod (I) toilet task. 3) Pt will be Independent grooming/hygiene. 4) Pt Billy Index of ADLs score will improve by 2 points. 5) Pt will be SBA shower task. 6) Pt will be (I) light meal prep task. Patient's Goal
--- NOTE | 2018-09-26 11:44 | NUR ---
This Physical Therapist or Word Processor Technician was present for the entire physical therapy session directing the services, making the skilled judgement, and was not engaged in treating another patient or doing another task at the same time as the treatment session. Addendum: 09/26/18 at 1144 by NICHOLAS LEWIS PT Amended: Links added.
--- NOTE | 2018-09-26 11:45 | NUR ---
Physical Therapy Impression Pt reporting persistent L shoulder pain and tiredness throughout session but showed improved endurance on Nustep machine. Pt w/ SBA for xfers and used rollator. Pt ambulated a total of 250 ft to/from therapy gym, w/ CGAx1, use of rollator, and several standing breaks on return to room. During standing break SpO2 was 92% and HR was 104 bpm. Pt demonsrtated a shuffling gait, and used rollator. Pt completed 5 minutes on Nustep machine. L UE was not used for the exercise, due to reports of pain/discomfort. Pt reported fatigue throughout, but was able to make it the 5 minutes without a break. Pt was left supine in bed with all needs met and call light in reach. Pt would benefit from further skilled PT care to improve endurance to functional levels. Physical Therapy Goals 1. Pt to be indep with bed mobility and sup<>sit trnsfrs 2. Pt to be indep with sit to/from stand transfers 3. Pt to be modified indep with ambulation with FWW x 150' 4. Pt to be modified indep with up/down platform step with least restrictive device. Patient's Goals
[2018-09-26] MEDS: PNEUMOCOC VAC POLY 25MCG/0.5ML IM ONLY ONE ×2 (13:00→13:20)
--- NOTE | 2018-09-26 13:28 | NUR ---
Vaccine Pneumococcal 23 vaccine pulled up and I was ready to give it, when pt. stopped me and was recalling a memory of going to [place] with her friend to get the flu shot and maybe something else. I called Walter and she is up to date on the PNA vaccines.
[2018-09-26 16:56] VITALS: BP 99/66
[2018-09-27 07:27] VITALS: BP 126/76
[2018-09-27] MEDS: ACETAMINOPHEN 325 MG TAB PO PRN ×2 (08:28→21:06)
[2018-09-27] MEDS: DOCUSATE SODIUM 100 MG CAP PO SCH ×2 (08:28→21:06)
[2018-09-27] MEDS: CITALOPRAM HYDROBROM 20 MG TAB PO SCH (08:28)
[2018-09-27] MEDS: BETA-CAROTENE(A) & E/MIN TAB PO SCH (08:28)
[2018-09-27] MEDS: POLYETHYLENE GLYCOL 17 GM PKT PO SCH (08:28)
[2018-09-27 19:00] VITALS: BP 94/54
[2018-09-28] MEDS: DOCUSATE SODIUM 100 MG CAP PO SCH ×2 (08:47→20:45)
[2018-09-28] MEDS: POLYETHYLENE GLYCOL 17 GM PKT PO SCH (08:47)
[2018-09-28] MEDS: BETA-CAROTENE(A) & E/MIN TAB PO SCH (08:47)
[2018-09-28] MEDS: ACETAMINOPHEN 325 MG TAB PO PRN ×2 (08:47→18:23)
[2018-09-28] MEDS: CITALOPRAM HYDROBROM 20 MG TAB PO SCH (08:47)
[2018-09-28 08:51] VITALS: BP 117/58
--- NOTE | 2018-09-28 12:08 | NUR ---
Pt fears Pt has been more dependent today, stated, "I just want God to take me!" "I can't get around independently at [facility], there's NO WAY!" Is considering looking to transfer to long-term as she believes she is in need of a lot of help. She stated that she believes her daughter will be coming up from [place], [place] today and I encouraged her to speak with her daughter about it. Sarita said that her daughter had POA for her. She has been acting more dependent today; for example, when her breakfast was brought to her, the two pieces of simmons were stuck together at one end. She picked them up, put them down, and then told the RSA to separate them as, she said, she could not do it.
[2018-09-28 15:50] VITALS: BP 130/75
[2018-09-29] MEDS: ACETAMINOPHEN 325 MG TAB PO PRN ×3 (05:21→20:16)
[2018-09-29 07:16] VITALS: BP 137/80
[2018-09-29] MEDS: POLYETHYLENE GLYCOL 17 GM PKT PO SCH (08:33)
[2018-09-29] MEDS: BETA-CAROTENE(A) & E/MIN TAB PO SCH (08:33)
[2018-09-29] MEDS: CITALOPRAM HYDROBROM 20 MG TAB PO SCH (08:33)
[2018-09-29] MEDS: DOCUSATE SODIUM 100 MG CAP PO SCH ×2 (08:33→20:17)
--- NOTE | 2018-09-29 08:37 | NUR ---
Occupational Therapy Impression (I) supine to sit. Mod (I) ambulation with 4WW. Pt (I)ly and safely using 4WW (including brakes). (I) UB/LB dressing. (I) grooming standing sinkfront. Mod (I) toileting. Pt has met appropriate OT goals. Ready for discharge to [facility] when medically appropriate. Occupational Therapy Goals 1) Pt will be Mod (I) UB/LB dressing. 2) Pt will be Mod (I) toilet task. 3) Pt will be Independent grooming/hygiene. 4) Pt Billy Index of ADLs score will improve by 2 points. 5) Pt will be SBA shower task. 6) Pt will be (I) light meal prep task. Patient's Goal
[2018-09-29] MEDS: TAMSULOSIN HCL 0.4 MG CAP PO SCH (10:48)
[2018-09-29] MEDS ORDERED: CITA-145 PO (13:32)
[2018-09-29] MEDS ORDERED: TAMS0.4C25 PO (13:32)
[2018-09-29] MEDS ORDERED: METH1TAB58 PO (13:32)
[2018-09-29] MEDS ORDERED: GABA250S3 PO (13:44)
--- NOTE | 2018-09-29 13:51 | Hospitalist Depart ---
Discharge Summary Reason for Hosp/Final Diag: (1) Shoulder pain, left Status: Chronic Hospital Course & Plan: Shoulder X-ray shows moderate glenohumeral degenerative change. She will continue with PT/OT. She should follow up with orthopedics upon discharge. (2) Hypokalemia Status: Resolved Hospital Course & Plan: Resolved. (3) Rhabdomyolysis Status: Resolved Hospital Course & Plan: She was found on the floor for an unknown period of time. Her CPK was elevated at just under 5000 and did come down to under 300 prior to transfer to [facility]. She has been working with PT/OT regarding her mobility/strength/safety. She will be transferred to [facility]. (4) Acute renal failure Status: Acute Hospital Course & Plan: Secondary to dehydration and/or a component of rhabdomyolysis. She improved with IV fluids and creatinine is now in normal range. (5) Urinary tract infection Status: Acute Hospital Course & Plan: She did have leukocytes and bacteria in her urine. She also had an elevated WBC count. A culture is not available as it was not done on the ER specimen. She was placed on empiric treatment with IV ceftriaxone initially and transitioned to oral Omnicef 300mg PO BID for 5 more days to complete a 7 day course of therapy. Will monitor for any recurrent symptoms. (6) Elevated troponin Status: Acute Hospital Course & Plan: Likely secondary to acute renal failure/rhabdomyolysis. It is possible she may have have some troponin leak due to "strain" due to borderline hypotension. She has not had any concerning cardiac symptoms. Departure Latest Vital Signs Vital Signs 09/29/18 09/29/18 07:16 08:15 Temp 98.2 Pulse 74 Resp 14 B/P (MAP) 137/80 (99) Pulse Ox 93 O2 Delivery Room Air Weight (Pounds): 127 Weight (Ounces): 3.0 Result Diagram: 09/24/18 0549 09/24/1849 Condition: Improved Discharge: Home Health, Assisted Living PT/OT Follow Up For: PT For Strengthening, OT For ADL's, PT Evaluation and Treat, OT Evaluation and Treat Discharge Instructions Home Meds Active Scripts Gabapentin (GABAPENTIN) 250 Mg/5 Ml Solution, 6.25 ML PO QHS, #188 ML Prov:DAMIAN DINERO [place] [facility] 09/29/18 Tamsulosin Hcl (FLOMAX) 0.4 Mg Cap.er.24h, 0.4 MG PO DAILY, #30 CAP Prov:DAMIAN DINERO [place] [facility] 09/29/18 Methenamine Hippurate (METHENAMINE HIPPURATE) 1 Gm Tablet, 1 GM PO BID, #60 TAB Prov:DAMIAN DINERO [facility] 09/29/18 Citalopram Hydrobromide (CITALOPRAM HBR) 20 Mg Tablet, 20 MG PO QDAY, #30 TAB Prov:DAMIAN DINERO [facility] 09/29/18 Reported Medications Polyvinyl Alcohol/Povidone (Freshkote Eye Drops) 2.7 %-2 % Drops, 1 DROP OU BID 09/17/18 Cranberry Extract/Vit C (AZO CRANBERRY SOFTGEL) 1 Each Capsule, 1 EACH PO QDAY, CAPSULE 09/13/18 Vit C/E/Zn/Coppr/Lutein/Zeaxan (Preservision Areds 2 Softgel) 1 Each Capsule, 1 CAP PO QDAY 09/13/18 Diet: Regular Activity: As Tolerated Special Instructions: appointment with Dr Manzano as a new patient 10/28/2018 at 1:15pm please arrive early and bring your paper work with you at admission. Follow up with Orthopedics for shoulder pain. Copies to: JANICE MANZANO MD ; Venous Thromboembolism Antithrombotics Is Pt On Any Antithrombotics?: No [id number] Certification Face to Face Home Health Certification Patient's Primary Care Provider: Bettye Mir Emergency Crew Supervisor Institutional Provider conducted the [id number] encounter. Electronic Undersigning Physician Certifies Home Health. I certify that the patient has been under my care and that I had a [id number] encounter that meets the physician [id number] encounter requirements with this patient. This patient is home-bound due to safety issues and continues to require assistance with ADL's. I certify that based on my findings, that Nursing, Aides and the following Home Health services are medically necessary: Medical Necessity: Rehab Date Face to Face Conducted: Sep 29, 2018 VIMAL DINERODIMAS COPELAND Sep 29, 2018 13:51
--- NOTE | 2018-09-29 14:17 | NUR ---
Physical Therapy Impression Pt demonstrated improved endurance/strength, handling stair training well and perfoming Nustep without difficulty. Pt ambulated 375ft w/ Andrew and use of four wheeled walker. Pt performed 5 minutes on NuStep machine. L UE was not used for the exercise due to discomfort in shoulder. Pt was able to ascend/descend 4 stairs w/Andrew and use of right/left railings. Bed mobility and sit<>stand xfers were also performed with Andrew and use of four wheeled walker for transfers. Pt was left supine in bed with all needs met and call light in reach. Pt safe to discharge to [facility] when medically appropriate. Physical Therapy Goals 1. Pt to be indep with bed mobility and sup<>sit trnsfrs 2. Pt to be indep with sit to/from stand transfers 3. Pt to be modified indep with ambulation with FWW x 150' 4. Pt to be modified indep with up/down platform step with least restrictive device. Patient's Goals
--- NOTE | 2018-09-29 14:17 | NUR ---
This Physical Therapist or Watch Assembly Inspector was present for the entire physical therapy session directing the services, making the skilled judgement, and was not engaged in treating another patient or doing another task at the same time as the treatment session. Addendum: 09/29/18 at 1417 by NICHOLAS LEWIS PT Amended: Links added.
[2018-09-29 15:10] VITALS: BP 108/52
--- NOTE | 2018-09-29 16:30 | NUR ---
Urinary retention This morning when patient was straight cath'd at about 0920, she had 350 mL out. She had not voided again since. At 1500 hours this RN checked her bladder with a bladder scanner and found that she had 272 mL in; at that time she did not need to void. At about 1610 hrs, she voided on toilet with only about 2 mL in the hat and some more in toilet behind the hat. I checked post void residual at about 1615 hours and there was 211 mL in. Since this was less than 300 mL, will continue to monitor.
[2018-09-29] MEDS ORDERED: GABAPENTIN 300 MG CAP PO ONE (21:00)
[2018-09-30 07:50] VITALS: BP 117/72
[2018-09-30] MEDS: ACETAMINOPHEN 325 MG TAB PO PRN (08:31)
[2018-09-30] MEDS: POLYETHYLENE GLYCOL 17 GM PKT PO SCH (08:32)
[2018-09-30] MEDS: DOCUSATE SODIUM 100 MG CAP PO SCH (08:32)
[2018-09-30] MEDS: TAMSULOSIN HCL 0.4 MG CAP PO SCH (08:32)
[2018-09-30] MEDS: CITALOPRAM HYDROBROM 20 MG TAB PO SCH (08:32)
[2018-09-30] MEDS: BETA-CAROTENE(A) & E/MIN TAB PO SCH (08:32)
--- NOTE | 2018-09-30 08:33 | PT ECF NOTE ---
Type of Note: Initial Note Primary Medical Diagnosis: Generalized weakness s/p hospital admission for fall at home with rhabdomyolysis, UTI, ARF, increased troponin Physical Therapy Evaluation Date: 09/16/18 SUBJECTIVE: Prior Hospitalization: [facility] 09/13/18 thru 09/16/18 Prior Level of Function: Independent with ADLs. Assist from family/neighbors for IADLs. Pt reports MOW 2x/week and does not drive. Ambulates with 4WW. Reports no history of falls prior to fall that led to admission. Prior Living Status: Bi-level house Alone Assist by family Assist by friends Community Services: Meals on Wheels Home Accessibility: Stairs with rails All needs on one level Basement in home-Does not access basement Tub/shower combination-Pt reports bathing 1x/week at maximum Equipment Owned: Rollator Medical Complications/Past Medical History: See EMR Psychosocial Support: Supportive neighbors, 2 sons in [place] Pain Scale (0-10): None reported at time of initial evaluation OBJECTIVE: Strength: Functional strength indicates generalized weakness with fatigue noted with basic functions. 3+/5 for B) LE's ROM: (please note any abnormalities) WFL Sensation: (please note any abnormalities) No paresthesias reported Other Neuro findings: n/a Bed Mobility: Min/CGA Assistive device: rail Transfers: Danielle/Mod Assistive Device: Front wheeled walker Gait: Minimum assistance/CGA Assistive device: Front wheeled walker Stairs: Not addressed Assistive device: Timed Up and Go (>12 seconds indicated increased risk for falls): 1 minute, 7 seconds 10 meter walk test (0.6m/second cannot function independently): n/a Other Objective Measures: n/a ASSESSMENT: Pt presents to [facility] with decreased functional mobility as compared to PLOF. Pt indicates that she was ambulatory without an assistive device and Indep with all basic ADL's prior to this situation. Pt would benefit from rehab to address strengthening, balance and functional mobility with proper safety awareness skills. Problem List/Current Limitations: Decreased activity rayshawn Decreased strength Decreased balance Generalized weakness Short Term Goals: 1. Pt to be indep with bed mobility and sup<>sit trnsfrs 2. Pt to be indep with sit to/from stand transfers 3. Pt to be modified indep with ambulation with FWW x 150' 4. Pt to be modified indep with up/down platform step with least restrictive device. Shelter Goals: Pt to return to least restrictive environment with adequate support Patient Goals: Return home Rehabilitation Prognosis: Fair Barriers for Discharge: Pt anjelica decreased strength, affecting her safety with basic functional mobility. PLAN: The patient will benefit from skilled physical therapy services 5 times per week for 2 weeks including: Therapeutic Exercise Therapeutic Activities Transfer Training Gait Training Stair Training ADL's Safety Training Pt/Caregiver Training Bed Mobility Thank you for this referral. If you have any questions, concerns, or comments about this report or plan, please contact me at . H. Renée Jacobson, PT, MPT, OMS MTDD
--- NOTE | 2018-09-30 08:43 | NUR ---
OCCUPATIONAL THERAPY Dressing Assistance: Independent Dressing Aid Required: None Bathing Assistance: SBA/Min A per pt request Bathing Equipment: Shower Chair Home Assessment: Not Completed Feeding Assistance: Independent Feeding Specialized Equipment: None Toilet Use: Modified I/ AE Verbalizes Needs: Yes Understands Precautions: Yes Cooperative: Yes Family Teaching: No Occupational Therapy Comment:
--- NOTE | 2018-09-30 08:48 | NUR ---
KAITLIN completed 14-day and DC MDS with pt. C: 14, D: 06, E: no concerns, Q: pt plans to DC to community, referrals made for [facility] and Assisted Living.
--- NOTE | 2018-09-30 08:51 | OT ECF NOTE ---
Type of Note: Discharge Note Primary Medical Diagnosis: Generalized weakness s/p hospital admission for fall at home with rhabdomyolysis, UTI, ARF, increased troponin Occupational Therapy Evaluation Date: 09/16/18 SUBJECTIVE: Prior Hospitalization: [facility] 09/13/18 thru 09/16/18 Prior Level of Function: Independent with ADLs. Assist from family/neighbors for IADLs. Pt reports MOW 2x/week and does not drive. Ambulates with 4WW. Reports no history of falls prior to fall that led to admission. Prior Living Status: Bi-level house Alone Assist by family Assist by friends Community Services: Meals on Wheels Home Accessibility: Stairs with rails All needs on one level Basement in home-Does not access basement Tub/shower combination-Pt reports bathing 1x/week at maximum Equipment Owned: Rollator Medical Complications/Past Medical History: See EMR Psychosocial Support: Supportive neighbors, 2 sons in [place] Pain Scale (0-10): Pain noted in L) UE throughout mobility and ADLs. Pt to follow up with orthopedics at discharge. 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 Requests assist for all ADLs. Standardized Assessment: Billy Index of Activities of Daily Livin/20 upon initial evaluation (09/16/18). upon discharge (09/30/18). ASSESSMENT: Sarita presented to [facility] below baseline requiring increased assist for ADLs/IADLs. She has met all appropriate skilled OT goals. Short Term Goals: 1) Pt will be Mod (I) UB/LB dressing. GOAL MET 2) Pt will be Mod (I) toilet task. GOAL MET 3) Pt will be Independent grooming/hygiene. GOAL MET 4) Pt Billy Index of ADLs score will improve by 2 points. GOAL MET 5) Pt will be SBA shower task. GOAL MET 6) Pt will be (I) light meal prep task. GOAL MET Nursing Clerk Goals: Return to least restrictive environment Patient Goals: Return home Rehabilitation Prognosis: Good Barriers to Discharge: Fear and anxiety with functional mobility PLAN: The patient will discharge to [facility] for continued assist with ADLs/IADLs. Recommend follow-up with orthopedics for left shoulder pain. Thank you for this referral. If you have any questions, concerns, or comments about this report or plan, please contact me at . Ольга Rodriges MS, OTR/L Occupational Therapist WALTER
--- NOTE | 2018-09-30 10:25 | Medical Nutrition Therapy ---
Nutrition Anthropometrics Height (Inches): 70.00 Height (Calculated Centimeters: 177.854686 Weight (Pounds): 127 Weight (Calculated Kilograms): 57.691 BMI: 18.4 Caleb Nutrition Score: Probably Inadequate Caleb Nutrition Risk Score: 17 Dietary Referral Nutrition Risk Factors: Unplanned Loss >10lbs Nutrition Risk Comment: Physical Findings Physical Appearance: Underweight BMI<19 Skin Appearance Skin Appearance: Edema Edema Location Modifier: Both Edema Location: Lower Extremity Type of Edema: Degree of Edema: Gastrointestinal Symptoms GI Symtoms: Tube Present: Bowel Sounds: Recent Bowel Pattern: Stool Characteristics: Nutritional Diagnosis Nutritional Risk Acuity 3: Eat/Chew Problem, %IBW 81-89% Nutritional Acuity: 3-Mild Energy Requirement: 1425 (MSY) Protein Requirement: 58 (1gm/kg) Fluid Requirement: 1425 (25ml/kg) Diet Type: Diet as Tolerated DOV/REG Nutrition Intervention: Cont diet as ordered, Encourage intake, Between meal supplement Food Likes: easy to chew foods Food Dislikes: spinach Additional Diet Restrictions: OFFER NUTR SUPPLMENT Diet Comment To RSA: OFFER CZFO-CY-QUIA FOODS Nutrition Monitoring & Eval Nutrition Goals: Eat 75-100% Meal Nutrition Follow-Up: Fair Intake RD Patient Assessment Time: [address] Assessment Type: RD Re-Assessment Patient Nutrition Acuity: 3-Mild Follow Up Date: Oct 07, 2018 Nutritional Comment: 09/17 Pt was admitted to med unit for ARF & Rhabdomyolysis. BUN is now WNR at 13. Creatinine is now WNR at 0.5. Alb 2.8. Pt on regualr diet and eating 75% of meals. BMI is in underwt range. Pt states has always been thin and 128# is within her usual range. Pt states dislikes spinach and wants easy to chew foods. Will offer nutr supplment to increase kca and protein intake. BK 09/21 Pt cont on regular diet. pt eain 75-100% of small to regular portion with occasional nutritional supplment. No new labs or wt. Will cont to monitor and encourage intake. BK 09/30 Pt cont on regular diet. Intake average 90% of small portions with occasional nutrtional supplment. Will cont to monitor and encourage intake. LINDA DAVISON Sep 30, 2018 10:25
--- NOTE | 2018-10-01 12:12 | PT ECF NOTE ---
Type of Note: Discharge Summary Primary Medical Diagnosis: Generalized weakness s/p hospital admission for fall at home with rhabdomyolysis, UTI, ARF, increased troponin Physical Therapy Evaluation Date: 09/16/18 SUBJECTIVE: Prior Hospitalization: [facility] 09/13/18 thru 09/16/18 Prior Level of Function: Independent with ADLs. Assist from family/neighbors for IADLs. Pt reports MOW 2x/week and does not drive. Ambulates with 4WW. Reports no history of falls prior to fall that led to admission. Prior Living Status: Bi-level house, Alone, Assist by family, Assist by friends *Pt plans to DC to [facility] Community Services: Meals on Wheels Home Accessibility: Pt plans to DC to [facility] Equipment Owned: Rollator Medical Complications/Past Medical History: See EMR Psychosocial Support: Supportive neighbors, 2 sons in [place] Pain Scale (0-10): None reported at time of initial evaluation OBJECTIVE: Bed Mobility: Mod I Transfers: Mod I Assistive Device: 4 wheeled walker Gait: Mod I x 430' Assistive device: 4 wheeled walker Stairs: ascend/descend 4 stairs Mod I Assistive device: rails ASSESSMENT: Pt has met PT goals and is safe to DC to assisted living. Short Term Goals: ALL MET 1. Pt to be indep with bed mobility and sup<>sit trnsfrs 2. Pt to be indep with sit to/from stand transfers 3. Pt to be modified indep with ambulation with FWW x 150' 4. Pt to be modified indep with up/down platform step with least restrictive device. Mcfp Goals: Pt to return to least restrictive environment with adequate support Patient Goals: Return home Rehabilitation Prognosis: Fair PLAN: DC to [facility]. Thank you for this referral. If you have any questions, concerns, or comments about this report or plan, please contact me at . Yue Schuster, PT, DPT, GCS MTDD
== END 2018-09-30 13:40 | disposition home or self-care (01) | DRG 558 ==
LOC: ECF 09:29
PROVIDERS: ADMIT Internal Medicine; ATTEND Internal Medicine
DX: M62.82 Rhabdomyolysis (principal); N39.0 Urinary tract infection, site not specified; E87.6 Hypokalemia; M75.42 Impingement syndrome of left shoulder; Z66 Do not resuscitate
CPT/HCPCS: 36415; 81001; 82040; 82247; 82310; 82374; 82435; 82565; 82947; 84075; 84132; 84155; 84295; 84450; 84460; 84520; 85025; 87088; 90732; 97161; 97165

== ENCOUNTER → 2018-10-28 | Outpatient (CLI) | payer MEDICARE, BC ==
[2014-06-22 15:00] VITALS: BMI 20.5
[~2018-10-28] MED LIST changes: +ACET-1966 PO; +ASPI-757 PO; +CALC-515 PO; +GABA250S3 PO; +GUAI237L36 PO; +IBUP-136 PO; +LOPE2CAP15 PO; +MAG-66 PO; +PEG15DRO5 OP; +POLY10DR6 OU; +TAMS0.4C25 PO
[2018-10-28 13:32] LABS: PLATELET COUNT, AUTOMATED 291 K/uL (150-450)
--- NOTE | 2018-10-28 15:30 | RADIOLOGY IMAGING REPORT ---
FACILITY: [facility] - [place], [place] PATIENT NAME: Sarita Griffith : 1930 MR: [id number] V: [id number] EXAM DATE: ORDERING PHYSICIAN: JANICE HOLLIDAY TECHNOLOGIST: Location: [facility] Patient: Sarita Griffith : 1930 Visit/Account:[id number] Date of Sevice: 10/28/2018 DEXA Scan Clinical history: Screening. Comparison: DEXA scan from 08/28/2007. LUMBAR SPINE: The bone mineral density (BMD) measured from L1-L4 correlates with a Z-score of 0.3 and a T-score of -1.8 which is osteopenia as defined by the World Health Organization. The corresponding risk of frac ture in the lumbar spine is 3-4 times increased compared with a young adult reference population. Th is value has decrease by 7.7 % since the prior study. More than 5% change is considered significant. HIP: Bone mineral density (BMD) measured in the LEFT total hip region correlates with a Z-score 0.4 and a T-score of -2.1 which is osteopenia as defined by the World Health Organization. The corresponding r isk of fracture in the hip is 4-6 times increased compared to a young adult reference population. Thi s value has decrease by 22.7 % since the prior study. More than 5% change is considered significant. T score left femoral neck -2.3 Bone mineral density (BMD) measured in the Femoral Neck region measures 0.720 g/cm?. IMPRESSION: 1. Lumbar spine: Osteopenia. There has been 7.7% decrease in the bone mineral density since the pre vious exam. 2. Left Total Hip: Osteopenia. There has been 22.7% decrease in the bone mineral density since the previous exam. 3. Femoral Neck: Bone Mineral Density is 0.720 g/cm? The next DEXA scan of this patient should include the following sites: L1-L4 and the left hip. FRAX? WHO Fracture Risk Assessment Tool link: <http://www.shef.ac.uk/FRAX/tool.jsp?locationValue=9> PLEASE NOTE: 1) The World Health Organization defines low BMD as follows: T-score Normal > -1 Osteopenia < -1 and > -2.5 Osteoporosis < -2.5 without fractures Established osteoporosis < -2.5 with fractures 2) In general, you may wish to consider: Diagnosis Treatment Follow-up DEXA Normal BMD Prevention 2-3 years Osteopenia Prevention/therapy 1-2 years Osteoporosis Therapy Yearly 3) Fracture risk estimated from the T-score is more accurate for vertebral fractures (often spontane ous) than for hip fractures. Report Dictated By: Dorene Baires MD at 10/28/2018 3:22 PM Report E-Signed By: Dorene Baires MD at 10/28/2018 3:23 PM WSN:[id number]
== END ==
LOC: LAB 13:12
PROVIDERS: ATTEND Emergency Medicine
DX: F03.90 Unspecified dementia, unspecified severity, without behavioral disturbance, psychotic disturbance, mood disturbance, and anxiety (principal); M85.80 Other specified disorders of bone density and structure, unspecified site
CPT/HCPCS: 36415; 77080; 82040; 82247; 82306; 82310; 82374; 82435; 82565; 82607; 82947; 84075; 84132; 84155; 84295; 84450; 84460; 84520; 85025